=== PATIENT | male | born 1980 | race Hispanic/Latino ===

== ENCOUNTER 2020-12-05 20:12 | Inpatient (IN) | payer OTHER ==
[~2020-12-05] VITALS: Ht 170.2 cm; Wt 97.9 kg
[2020-12-05 21:09] LABS: BASOPHILS % (AUTO) 0.4 % (0.0-5.0); EOSINOPHILS % (AUTO) 0.7 % (0.0-8.0); HEMATOCRIT 33.3 % (42-54); LYMPHOCYTES % (AUTO) 18.7 % (21.0-51.0); MEAN CORPUSCULAR HEMOGLOBIN 38.1 pg (27.0-33.0); MEAN CORPUSCULAR HGB CONC 34.2 g/dL (32.0-36.0); MEAN CORPUSCULAR VOLUME 111.4 fL (79-99); NEUTROPHILS % (AUTO) 66.8 % (40.0-77.0); PLATELET COUNT (AUTO) 85 K/uL (130-400); RED BLOOD CELL COUNT(AUTO) 2.99 MIL/uL (4.50-6.20); RED CELL DISTRIBUTION WIDTH 13.6 % (11.0-15.5); WHITE BLOOD COUNT (AUTO) 7.4 K/uL (4.8-10.8)
[2020-12-05] MEDS ORDERED: FUROSEMIDE 20MG VIAL ONE (21:20)
[2020-12-05] MEDS ORDERED: FUROSEMIDE 40MG VIAL ONE (21:21)
[2020-12-05 21:23] LABS: CREATININE 1.1 mg/dL (0.5-1.5); POTASSIUM 4.1 mmol/L (3.5-5.1)
[2020-12-05 21:26] LABS: INR 1.85 (0.85-1.15); PARTIAL THROMBOPLASTIN TIME 33.1 SEC (26.3-35.5); PROTHROMBIN TIME 18.5 SEC (9.6-11.6)
[2020-12-05 21:27] LABS: ALBUMIN 1.9 g/dL (3.5-5.0); BILIRUBIN,TOTAL 15.6 mg/dL (0.2-1.0); TOTAL PROTEIN, SERUM 6.3 g/dL (6.0-8.3)
[2020-12-06] MEDS ORDERED: ONDANSETRON 4MG INJ IV PRN
[2020-12-06] MEDS ORDERED: ALBUMIN (HUMAN) 25% 50 ML IV ONE
[2020-12-06] MEDS ORDERED: ACETAMINOPHEN 325 MG TAB PO PRN ×2
[2020-12-06 00:37] LABS: APPEARANCE,URINE Cloudy (CLEAR); BILIRUBIN,URINE Large (NEGATIVE); GLUCOSE, URINE (UA) Negative (NEGATIVE); KETONES,URINE Negative (NEGATIVE); LEUKOCYTE ESTERASE ,URINE Moderate (NEGATIVE); NITRATE,URINE Positive (NEGATIVE); OCCULT BLOOD,URINE Trace (NEGATIVE); PROTEIN,URINE POS 1+ mg/dL (NEGATIVE)
[2020-12-06 00:42] LABS: COLOR,URINE Orange (YELLOW)
[2020-12-06 00:44] LABS: AMORPHOUS SEDIMENT,UR Rare /LPF (None Seen); BACTERIA,URINE Rare /HPF (None Seen); MUCUS,URINE Rare LPF (None Seen); RBC,URINE None Seen /HPF (0-1); SQUAMOUS EPITHELIAL CELL,UR Rare /HPF (0-2); WBC,URINE 0-1 /HPF (0-1)
[2020-12-06] MEDS ORDERED: CEFTRIAXONE 1G VIAL ONE ×2 (01:52→09:36)
[2020-12-06 03:53] LABS: BASOPHILS % (AUTO) 0.1 % (0.0-5.0); EOSINOPHILS % (AUTO) 0.5 % (0.0-8.0); HEMATOCRIT 31.2 % (42-54); LYMPHOCYTES % (AUTO) 15.8 % (21.0-51.0); MEAN CORPUSCULAR HEMOGLOBIN 37.8 pg (27.0-33.0); MEAN CORPUSCULAR HGB CONC 34.3 g/dL (32.0-36.0); MEAN CORPUSCULAR VOLUME 110.2 fL (79-99); MONOCYTES % (AUTO) 15.8 % (3.0-13.0); NEUTROPHILS % (AUTO) 67.3 % (40.0-77.0); PLATELET COUNT (AUTO) 80 K/uL (130-400); RED BLOOD CELL COUNT(AUTO) 2.83 MIL/uL (4.50-6.20); RED CELL DISTRIBUTION WIDTH 13.6 % (11.0-15.5)
[2020-12-06 04:18] LABS: ALBUMIN 1.7 g/dL (3.5-5.0); POTASSIUM 4.5 mmol/L (3.5-5.1)
[2020-12-06] MEDS: FAMOTIDINE 20MG VIAL IV SCH ×2 (09:00→20:57)
[2020-12-06] MEDS: FUROSEMIDE 20MG VIAL IV SCH ×2 (09:00→20:58)
[2020-12-06] MEDS ORDERED: FUROSEMIDE 20MG VIAL ONE (09:35)
[2020-12-06] MEDS ORDERED: FAMOTIDINE 20MG VIAL IV ONE (09:36)
[2020-12-06] MEDS: CEFTRIAXONE 1G VIAL IVP SCH (13:00)
[2020-12-06 14:36] LABS: AMPHET/METH SCREEN,URINE NEGATIVE (NEGATIVE); CANNABINOID SCREEN,URINE NEGATIVE (NEGATIVE); COCAINE SCREEN,URINE NEGATIVE (NEGATIVE); OPIATE SCREEN,URINE NEGATIVE (NEGATIVE); PHENCYCLIDINE SCREEN,URINE NEGATIVE (NEGATIVE)
[2020-12-06 15:03] LABS: BARBITURATE SCREEN, URINE NEGATIVE (NEGATIVE); BENZODIAZEPINES SCREEN,URINE NEGATIVE (NEGATIVE)
[2020-12-06 17:40] VITALS: BP 112/67
[2020-12-06 20:31] VITALS: BP 127/80
[2020-12-06 23:19] VITALS: BP 125/72
[2020-12-07] MEDS: CEFTRIAXONE 1G VIAL IVP SCH ×3 (01:24→23:44)
[2020-12-07 03:59] VITALS: BP 137/84
[2020-12-07 06:24] LABS: BASOPHILS % (AUTO) 0.5 % (0.0-5.0); EOSINOPHILS % (AUTO) 2.1 % (0.0-8.0); HEMATOCRIT 27.9 % (42-54); MEAN CORPUSCULAR HGB CONC 35.1 g/dL (32.0-36.0); MEAN CORPUSCULAR VOLUME 108.1 fL (79-99); MONOCYTES % (AUTO) 16.4 % (3.0-13.0); NEUTROPHILS % (AUTO) 62.3 % (40.0-77.0); PLATELET COUNT (AUTO) 60 K/uL (130-400); RED BLOOD CELL COUNT(AUTO) 2.58 MIL/uL (4.50-6.20); RED CELL DISTRIBUTION WIDTH 13.3 % (11.0-15.5); WHITE BLOOD COUNT (AUTO) 5.8 K/uL (4.8-10.8)
[2020-12-07 06:39] LABS: CREATININE 0.9 mg/dL (0.5-1.5)
[2020-12-07] MEDS: FAMOTIDINE 20MG VIAL IV SCH ×2 (08:54→19:19)
[2020-12-07] MEDS: FUROSEMIDE 20MG VIAL IV SCH (08:54)
[2020-12-07 09:40] VITALS: BP 131/73
[2020-12-07] MEDS: SPIRONOLACTONE 25 MG TAB PO SCH (12:05)
[2020-12-07] MEDS ORDERED: PHARMACY COMMUNICATION MISC PRN (14:00)
[2020-12-07] MEDS ORDERED: CHLORDIAZEPOXIDE HCL 25 MG CAP PO PRN ×2 (14:00)
[2020-12-07] MEDS ORDERED: LORAZEPAM 2 MG/ML 1 ML VIAL IVP PRN ×2 (14:00)
[2020-12-07] MEDS ORDERED: IOHEXOL 350 MG/ML 100ML INFUS..BTL IV ONE (15:13)
[2020-12-07] MEDS: FUROSEMIDE 40MG VIAL IV SCH ×2 (16:40→23:44)
[2020-12-07 20:20] VITALS: BP 118/71
[2020-12-08] VITALS (13 sets, daily range): BP systolic 88–136; BP diastolic 53–75
[2020-12-08 05:43] LABS: ALBUMIN 1.6 g/dL (3.5-5.0); BILIRUBIN,TOTAL 10.9 mg/dL (0.2-1.0); CREATININE 0.9 mg/dL (0.5-1.5); PHOSPHORUS 3.2 mg/dL (2.5-4.9); POTASSIUM 3.9 mmol/L (3.5-5.1); TOTAL PROTEIN, SERUM 5.5 g/dL (6.0-8.3)
[2020-12-08] MEDS: FUROSEMIDE 40MG VIAL IV SCH (05:54)
[2020-12-08 08:48] LABS: INR 1.96 (0.85-1.15); PARTIAL THROMBOPLASTIN TIME 36.1 SEC (26.3-35.5); PROTHROMBIN TIME 19.5 SEC (9.6-11.6)
[2020-12-08] MEDS: MULTIVITAMIN TABLET PO SCH (08:54)
[2020-12-08] MEDS: SPIRONOLACTONE 25 MG TAB PO SCH (08:54)
[2020-12-08] MEDS: FAMOTIDINE 20MG VIAL IV SCH ×2 (08:54→21:37)
[2020-12-08] MEDS: FOLIC ACID 1 MG TABLET PO SCH (08:54)
[2020-12-08] MEDS ORDERED: THIAMINE HCL 100 MG/ML 2ML VIAL IM SCH (09:00)
[2020-12-08 13:28] LABS: APPEARANCE BODY FLUID CLEAR (CLEAR); BODY FLUID RBC 11 /cu. mm.; BODY FLUID WBC 58 /cu. mm.; COLOR,BODY FLUID YELLOW (LT YELLOW); SPECIMENTYPE,BODY FLUID ASCITES; TOTAL VOLUME,BODY FLUID 9700 mL
[2020-12-08 14:17] LABS: BF LYMPHOCYTE 18 %; BF MESOTHELIAL 60 %; BF MONOCYTE 9 %
[2020-12-08] MEDS: CEFTRIAXONE 1G VIAL IVP SCH (15:34)
[2020-12-08] MEDS: ALBUMIN (HUMAN) 25% 200 ML IV SCH ×2 (15:34→15:35)
[2020-12-08 17:42] LABS: CREATININE 1.1 mg/dL (0.5-1.5); MAGNESIUM 1.8 mg/dL (1.80-2.40); POTASSIUM 3.9 mmol/L (3.5-5.1)
[2020-12-08] MEDS ORDERED: MAGNESIUM 2GM PREMIX 50ML 50 ML IV SCH (18:30)
[2020-12-09] MEDS: CEFTRIAXONE 1G VIAL IVP SCH ×3 (00:09→20:17)
[2020-12-09 03:53] VITALS: BP 111/58
[2020-12-09 04:48] LABS: BASOPHILS % (AUTO) 0.5 % (0.0-5.0); HEMATOCRIT 22.6 % (42-54); LYMPHOCYTES % (AUTO) 23.5 % (21.0-51.0); MEAN CORPUSCULAR HEMOGLOBIN 37.8 pg (27.0-33.0); MEAN CORPUSCULAR VOLUME 108.1 fL (79-99); MONOCYTES % (AUTO) 19.6 % (3.0-13.0); NEUTROPHILS % (AUTO) 53.9 % (40.0-77.0); PLATELET COUNT (AUTO) 39 K/uL (130-400); RED BLOOD CELL COUNT(AUTO) 2.09 MIL/uL (4.50-6.20); RED CELL DISTRIBUTION WIDTH 13.3 % (11.0-15.5); WHITE BLOOD COUNT (AUTO) 4.1 K/uL (4.8-10.8)
[2020-12-09 05:11] LABS: POTASSIUM 3.6 mmol/L (3.5-5.1); THYROID STIMULATING HORMONE 7.9 uIU/mL (0.36-3.74); URIC ACID 4.1 mg/dL (2.6-7.2)
[2020-12-09 08:00] VITALS: BP 102/58
[2020-12-09] MEDS: THIAMINE HCL 100 MG/ML 2ML VIAL IV SCH (08:39)
[2020-12-09] MEDS: FOLIC ACID 1 MG TABLET PO SCH (08:40)
[2020-12-09] MEDS: SPIRONOLACTONE 25 MG TAB PO SCH (08:40)
[2020-12-09] MEDS: Vitamin B Complex/Vit C/Folic Acid PO SCH (08:40)
[2020-12-09] MEDS: FAMOTIDINE 20MG TAB PO SCH ×2 (08:40→20:17)
[2020-12-09] MEDS: MULTIVITAMIN TABLET PO SCH (08:40)
[2020-12-09 12:00] VITALS: BP 108/68
[2020-12-09 16:00] VITALS: BP 106/69
[2020-12-09 19:06] VITALS: BP 110/68
[2020-12-09 20:55] LABS: HEMATOCRIT 23.7 % (42-54)
[2020-12-10 03:52] VITALS: BP 106/69
[2020-12-10 04:41] LABS: HEMATOCRIT 24.8 % (42-54); MEAN CORPUSCULAR HEMOGLOBIN 37.4 pg (27.0-33.0); MEAN CORPUSCULAR HGB CONC 34.3 g/dL (32.0-36.0); MEAN CORPUSCULAR VOLUME 109.3 fL (79-99); RED BLOOD CELL COUNT(AUTO) 2.27 MIL/uL (4.50-6.20); WHITE BLOOD COUNT (AUTO) 5.5 K/uL (4.8-10.8)
[2020-12-10 04:56] LABS: % IRON SATURATION 43.1 % (30-44)
[2020-12-10 05:09] LABS: CREATININE 0.9 mg/dL (0.5-1.5); POTASSIUM 3.8 mmol/L (3.5-5.1); T4 (THYROXINE) 3.8 ug/dL (4.7-13.3)
[2020-12-10 08:00] VITALS: BP 116/75
[2020-12-10] MEDS: MULTIVITAMIN TABLET PO SCH (10:40)
[2020-12-10] MEDS: FOLIC ACID 1 MG TABLET PO SCH (10:40)
[2020-12-10] MEDS: SPIRONOLACTONE 25 MG TAB PO SCH (10:40)
[2020-12-10] MEDS: Vitamin B Complex/Vit C/Folic Acid PO SCH (10:40)
[2020-12-10] MEDS: CEFTRIAXONE 1G VIAL IVP SCH ×2 (10:41→20:28)
[2020-12-10] MEDS: THIAMINE HCL 100 MG/ML 2ML VIAL IV SCH (10:41)
[2020-12-10] MEDS: FAMOTIDINE 20MG TAB PO SCH ×2 (10:41→20:28)
[2020-12-10 11:13] VITALS: BP 120/68
[2020-12-10] MEDS ORDERED: CEPH500B PO (12:48)
[2020-12-10 13:59] LABS: HEMATOCRIT 24.6 % (42-54)
[2020-12-10] MEDS ORDERED: SPIR25TA PO (15:50)
[2020-12-10] MEDS ORDERED: FURO20TA6 PO (15:50)
[2020-12-10 16:01] VITALS: BP 117/66
[2020-12-10 20:19] VITALS: BP 123/72
[2020-12-11 00:08] VITALS: BP 120/61
[2020-12-11 04:23] VITALS: BP 116/65
[2020-12-11 07:55] VITALS: BP 121/64
[2020-12-11 09:11] LABS: HEMATOCRIT 25.3 % (42-54)
[2020-12-11] MEDS: CEFTRIAXONE 1G VIAL IVP SCH (10:08)
[2020-12-11] MEDS: Vitamin B Complex/Vit C/Folic Acid PO SCH (10:09)
[2020-12-11] MEDS: FAMOTIDINE 20MG TAB PO SCH (10:09)
[2020-12-11] MEDS: SPIRONOLACTONE 25 MG TAB PO SCH (10:09)
[2020-12-11] MEDS: MULTIVITAMIN TABLET PO SCH (10:09)
[2020-12-11 11:28] VITALS: BP 112/63
[2020-12-11 13:38] LABS: HEMATOCRIT 25.3 % (42-54)
[2020-12-11 15:46] VITALS: BP 106/70
[2020-12-25] MEDS ORDERED: CYAN250014 PO (14:48)
[2020-12-25] MEDS ORDERED: Midodrine Hcl PO (14:48)
[2020-12-25] MEDS ORDERED: FOLI1 PO (14:48)
[2020-12-25] MEDS ORDERED: LEVO250T43 PO ×2 (15:02→15:21)
[2020-12-25] MEDS ORDERED: FOLI0.8C PO ×2 (15:02→15:21)
[2020-12-25] MEDS ORDERED: CYAN250010 PO ×2 (15:02→15:21)
[2020-12-25] MEDS ORDERED: MIDO10TA PO ×2 (15:02→15:21)
[2021-04-13] MEDS ORDERED: CYCL10TA16 PO (21:02)
== END 2020-12-11 16:50 | disposition home or self-care (01) | DRG 433 ==
LOC: EDH 20:12 → EDHIP 20:13 → 4AH 12-06 15:41 → 4CH 12-08 22:24
PROVIDERS: ADMIT Internal Medicine; ATTEND Internal Medicine
PROC: 0W9G3ZZ Drainage of Peritoneal Cavity, Percutaneous Approach (ICD-10-PCS; principal; 2020-12-08)
DX: K70.31 Alcoholic cirrhosis of liver with ascites (principal); N39.0 Urinary tract infection, site not specified; E87.1 Hypo-osmolality and hyponatremia; D68.9 Coagulation defect, unspecified; K76.6 Portal hypertension; I10 Essential (primary) hypertension; E87.70 Fluid overload, unspecified; E66.9 Obesity, unspecified; Z68.35 Body mass index [BMI] 35.0-35.9, adult; D69.6 Thrombocytopenia, unspecified; Z20.822 Contact with and (suspected) exposure to COVID-19; F10.10 Alcohol abuse, uncomplicated; E88.09 Other disorders of plasma-protein metabolism, not elsewhere classified; D64.9 Anemia, unspecified; K80.20 Calculus of gallbladder without cholecystitis without obstruction; N28.9 Disorder of kidney and ureter, unspecified; E03.9 Hypothyroidism, unspecified; Z91.19 Patient's noncompliance with other medical treatment and regimen
CPT/HCPCS: 36415; 49083; 71045; 74160; 74181; 76705; 80048; 80053; 80305; 81001; 82140; 82150; 82248; 82550; 82728; 82948; 83540; 83550; 83605; 83690; 83735; 83880; 83935; 84100; 84145; 84300; 84436; 84443; 84481; 84484; 84550; 85014; 85018; 85025; 85027; 85610; 85730; 87071; 87076; 87088; 87205; 87426; 89051; 93005; C1729; G0378; J0696; J1940; J3411; J3490; P9046; Q9967; U0003

== ENCOUNTER 2021-01-01 07:48 | Emergency (ER) | payer OTHER ==
[~2021-01-01 07:48] MED LIST: CYAN250010 PO; FOLI0.8C PO; LEVO250T59 PO; MIDO10TA PO
[2021-01-01 08:23] LABS: BASOPHILS % (AUTO) 0.8 % (0.0-5.0); EOSINOPHILS % (AUTO) 1.1 % (0.0-8.0); HEMATOCRIT 25.1 % (42-54); LYMPHOCYTES % (AUTO) 20.6 % (21.0-51.0); MEAN CORPUSCULAR HEMOGLOBIN 37.4 pg (27.0-33.0); MEAN CORPUSCULAR HGB CONC 31.9 g/dL (32.0-36.0); MEAN CORPUSCULAR VOLUME 117.3 fL (79-99); MONOCYTES % (AUTO) 13.6 % (3.0-13.0); NEUTROPHILS % (AUTO) 63.1 % (40.0-77.0); PLATELET COUNT (AUTO) 101 K/uL (130-400); RED BLOOD CELL COUNT(AUTO) 2.14 MIL/uL (4.50-6.20); RED CELL DISTRIBUTION WIDTH 14.4 % (11.0-15.5); WHITE BLOOD COUNT (AUTO) 7.4 K/uL (4.8-10.8)
[2021-01-01 08:35] LABS: ALBUMIN 2.7 g/dL (3.5-5.0); POTASSIUM 4.5 mmol/L (3.5-5.1)
[2021-01-01] MEDS ORDERED: ALBUMIN (HUMAN) 25% 200 ML IV ONE (08:37)
[2021-01-01 08:47] LABS: BILIRUBIN,TOTAL 10.6 mg/dL (0.2-1.0); TOTAL PROTEIN, SERUM 5.6 g/dL (6.0-8.3)
[2021-01-01 09:08] LABS: INR 2.08 (0.85-1.15); PARTIAL THROMBOPLASTIN TIME 36.2 SEC (26.3-35.5); PROTHROMBIN TIME 20.6 SEC (9.6-11.6)
[2021-01-01 09:21] LABS: CREATININE 1.2 mg/dL (0.5-1.5)
[2021-01-01 13:11] LABS: APPEARANCE BODY FLUID CLEAR (CLEAR); BODY FLUID WBC 88 /cu. mm.; COLOR,BODY FLUID YELLOW (LT YELLOW); SPECIMENTYPE,BODY FLUID ASCITES; TOTAL VOLUME,BODY FLUID 12000 mL
[2021-01-01 13:14] LABS: BODY FLUID RBC 170 /cu. mm.
[2021-01-01 13:25] LABS: BF LYMPHOCYTE 25 %; BF MESOTHELIAL 57 %; BF MONOCYTE 18 %
== END 2021-01-01 11:45 | disposition home or self-care (01) ==
LOC: EDH 07:48
DX: K70.31 Alcoholic cirrhosis of liver with ascites (principal)
CPT/HCPCS: 36415; 49083; 71045; 80053; 85025; 85610; 85730; 87071; 87205; 89051; 93005; 96365; 99285; A4215; P9046

== ENCOUNTER 2021-01-08 07:24 | Emergency (ER) | payer OTHER ==
[2021-01-08 07:41] LABS: BASOPHILS % (AUTO) 0.5 % (0.0-5.0); EOSINOPHILS % (AUTO) 1.4 % (0.0-8.0); HEMATOCRIT 28.6 % (42-54); LYMPHOCYTES % (AUTO) 18.4 % (21.0-51.0); MEAN CORPUSCULAR HEMOGLOBIN 36.6 pg (27.0-33.0); MEAN CORPUSCULAR HGB CONC 32.9 g/dL (32.0-36.0); MEAN CORPUSCULAR VOLUME 111.3 fL (79-99); MONOCYTES % (AUTO) 14.4 % (3.0-13.0); NEUTROPHILS % (AUTO) 64.8 % (40.0-77.0); PLATELET COUNT (AUTO) 86 K/uL (130-400); RED BLOOD CELL COUNT(AUTO) 2.57 MIL/uL (4.50-6.20); RED CELL DISTRIBUTION WIDTH 14.2 % (11.0-15.5); WHITE BLOOD COUNT (AUTO) 6.3 K/uL (4.8-10.8)
[2021-01-08 07:53] LABS: INR 2.02 (0.85-1.15); PROTHROMBIN TIME 20.7 SEC (9.6-11.6)
[2021-01-08 07:54] LABS: PARTIAL THROMBOPLASTIN TIME 40.7 SEC (26.3-35.5)
[2021-01-08 08:29] LABS: ALBUMIN 2.9 g/dL (3.5-5.0); BILIRUBIN,TOTAL 15.3 mg/dL (0.2-1.0); CREATININE 1.2 mg/dL (0.5-1.5); POTASSIUM 3.9 mmol/L (3.5-5.1); TOTAL PROTEIN, SERUM 5.8 g/dL (6.0-8.3)
[2021-01-08] MEDS ORDERED: ALBUMIN (HUMAN) 25% 200 ML IV ONE (09:34)
[2021-01-08] MEDS ORDERED: MIDODRINE HCL 5 MG TABLET ONE (12:52)
== END 2021-01-08 13:52 | disposition home or self-care (01) ==
LOC: EDH 07:24
DX: R18.8 Other ascites (principal); R14.0 Abdominal distension (gaseous); Z87.891 Personal history of nicotine dependence
CPT/HCPCS: 36415; 49083; 80053; 85025; 85610; 85730; 96365; 99284; A4215; P9046

== ENCOUNTER 2021-01-14 07:38 | Emergency (ER) | payer OTHER ==
[2021-01-14 08:25] LABS: BASOPHILS % (AUTO) 0.4 % (0.0-5.0); EOSINOPHILS % (AUTO) 1.6 % (0.0-8.0); HEMATOCRIT 26.5 % (42-54); LYMPHOCYTES % (AUTO) 14.7 % (21.0-51.0); MEAN CORPUSCULAR VOLUME 109.1 fL (79-99); MONOCYTES % (AUTO) 12.8 % (3.0-13.0); NEUTROPHILS % (AUTO) 69.9 % (40.0-77.0); PLATELET COUNT (AUTO) 80 K/uL (130-400); RED BLOOD CELL COUNT(AUTO) 2.43 MIL/uL (4.50-6.20); RED CELL DISTRIBUTION WIDTH 13.3 % (11.0-15.5); WHITE BLOOD COUNT (AUTO) 6.9 K/uL (4.8-10.8)
[2021-01-14 08:37] LABS: INR 1.97 (0.85-1.15); PROTHROMBIN TIME 20.2 SEC (9.6-11.6)
[2021-01-14 08:39] LABS: PARTIAL THROMBOPLASTIN TIME 41.1 SEC (26.3-35.5)
[2021-01-14 08:50] LABS: ALANINE AMINOTRANSFERASE 42 U/L (12-78); ASPARTATE AMINOTRANSFERASE 51 U/L (10-37); BILIRUBIN,TOTAL 13.6 mg/dL (0.2-1.0); CARBON DIOXIDE 23 mmol/L (21-32); CHLORIDE 99 mmol/L (101-111); CREATINE KINASE, TOTAL 90 U/L (21-232); CREATININE 1.2 mg/dL (0.5-1.5); GLOMERULAR FILTR. RATE CALC 71 mL/min (>60); GLUCOSE,RANDOM 137 mg/dL (70-105); MYOGLOBIN 58 ng/mL (10-92); POTASSIUM 3.7 mmol/L (3.5-5.1); SODIUM SERUM 132 mmol/L (136-145); TOTAL PROTEIN, SERUM 5.9 g/dL (6.0-8.3); TROPONIN I < 0.04 ng/mL (0.00-0.06); UREA NITROGEN, BLOOD 29 mg/dL (7-18)
[2021-01-14] MEDS ORDERED: ALBUMIN (HUMAN) 25% 200 ML IV ONE (09:05)
[2021-01-14 12:35] LABS: APPEARANCE BODY FLUID CLEAR (CLEAR); BODY FLUID WBC 57 /cu. mm.; COLOR,BODY FLUID YELLOW (LT YELLOW); SPECIMENTYPE,BODY FLUID ASCITES; TOTAL VOLUME,BODY FLUID 12000 mL
[2021-01-14 12:36] LABS: BODY FLUID RBC 78 /cu. mm.
[2021-01-14 12:46] LABS: BF LYMPHOCYTE 22 %; BF MESOTHELIAL 63 %; BF MONOCYTE 11 %
== END 2021-01-14 13:17 | disposition home or self-care (01) ==
LOC: EDH 07:38
DX: K70.31 Alcoholic cirrhosis of liver with ascites (principal)
CPT/HCPCS: 36415; 49083; 71045; 80053; 82550; 83605; 83874; 84145; 84484; 85025; 85610; 85730; 86900; 86901; 87040 ×2; 87071; 87205; 89051; 93005; 96365; 99285; A4215; P9046

== ENCOUNTER 2021-01-20 07:27 | Inpatient (IN) | payer OTHER ==
[~2021-01-20] VITALS: Ht 167.6 cm; Wt 77.4 kg
[2021-01-20] MEDS ORDERED: DiphenhydrAMINE HCL 50 MG/ML VIAL ONE (07:58)
[2021-01-20] MEDS ORDERED: ONDANSETRON HCL 4 MG/2 ML VIAL ONE (07:58)
[2021-01-20 07:59] LABS: BASOPHILS % (AUTO) 0.2 % (0.0-5.0); EOSINOPHILS % (AUTO) 0.5 % (0.0-8.0); HEMATOCRIT 23.7 % (42-54); LYMPHOCYTES % (AUTO) 9.9 % (21.0-51.0); MEAN CORPUSCULAR HGB CONC 34.6 g/dL (32.0-36.0); MEAN CORPUSCULAR VOLUME 103.9 fL (79-99); NEUTROPHILS % (AUTO) 69.3 % (40.0-77.0); PLATELET COUNT (AUTO) 68 K/uL (130-400); RED BLOOD CELL COUNT(AUTO) 2.28 MIL/uL (4.50-6.20); RED CELL DISTRIBUTION WIDTH 13.2 % (11.0-15.5); WHITE BLOOD COUNT (AUTO) 9.3 K/uL (4.8-10.8)
[2021-01-20] MEDS ORDERED: FAMOTIDINE/PF 20 MG/2 ML VIAL IV ONE (07:59)
[2021-01-20] MEDS ORDERED: PROCHLORPERAZINE EDISYLATE 10 MG/2 ML VIAL ONE (07:59)
[2021-01-20 08:11] LABS: INR 1.93 (0.85-1.15); PROTHROMBIN TIME 19.8 SEC (9.6-11.6)
[2021-01-20 08:26] LABS: ALBUMIN 2.6 g/dL (3.5-5.0); BILIRUBIN,TOTAL 12.5 mg/dL (0.2-1.0); CREATININE 2.2 mg/dL (0.5-1.5); POTASSIUM 4.2 mmol/L (3.5-5.1); TOTAL PROTEIN, SERUM 5.6 g/dL (6.0-8.3)
[2021-01-20] MEDS ORDERED: LACTULOSE 20 GM/30 ML UDCUP ONE ×2 (10:18→19:43)
[2021-01-20] MEDS ORDERED: ALBUMIN (HUMAN) 25% 100 ML IV ONE ×2 (12:33→19:43)
[2021-01-20] MEDS ORDERED: Vitamin B Complex/Vit C/Folic Acid ONE (12:33)
[2021-01-20] MEDS ORDERED: CEFTRIAXONE SODIUM 1 GM ONE (12:33)
[2021-01-20] MEDS ORDERED: MIDODRINE HCL 5 MG TABLET ONE ×2 (12:34→19:43)
[2021-01-20] MEDS ORDERED: PHYTONADIONE 10 MG/1 ML AMP ONE (12:34)
[2021-01-20] MEDS ORDERED: Vitamin B Complex/Vit C/Folic Acid PO SCH (12:45)
[2021-01-20] MEDS ORDERED: PHYTONADIONE 10 MG/1 ML AMP SQ SCH (12:45)
[2021-01-20 12:48] LABS: APPEARANCE,URINE Clear (CLEAR); BILIRUBIN,URINE Small (NEGATIVE); COLOR,URINE Dark Yellow (YELLOW); GLUCOSE, URINE (UA) Negative (NEGATIVE); KETONES,URINE Negative (NEGATIVE); LEUKOCYTE ESTERASE ,URINE Trace (NEGATIVE); NITRATE,URINE Negative (NEGATIVE); OCCULT BLOOD,URINE Negative (NEGATIVE); PH,URINE 5.5 (5.0-8.0); PROTEIN,URINE Negative (NEGATIVE)
[2021-01-20 12:52] LABS: CREATININE,URINE RANDOM 133 mg/dL (30-135); SODIUM,URINE RANDOM < 13 mmol/l (40-220)
[2021-01-20 12:57] LABS: AMPHET/METH SCREEN,URINE NEGATIVE (NEGATIVE); BARBITURATE SCREEN, URINE NEGATIVE (NEGATIVE); BENZODIAZEPINES SCREEN,URINE NEGATIVE (NEGATIVE); CANNABINOID SCREEN,URINE NEGATIVE (NEGATIVE); COCAINE SCREEN,URINE NEGATIVE (NEGATIVE); OPIATE SCREEN,URINE NEGATIVE (NEGATIVE); PHENCYCLIDINE SCREEN,URINE NEGATIVE (NEGATIVE)
[2021-01-20 12:58] LABS: BACTERIA,URINE None Seen /HPF (None Seen); RBC,URINE 0-1 /HPF (0-1); WBC,URINE 0-1 /HPF (0-1)
[2021-01-20 13:03] LABS: MAGNESIUM 3.1 mg/dL (1.80-2.40); PHOSPHORUS 3.7 mg/dL (2.5-4.9); THYROID STIMULATING HORMONE 3.49 uIU/mL (0.36-3.74); URIC ACID 8.9 mg/dL (2.6-7.2)
[2021-01-20 15:43] LABS: % IRON SATURATION 106.2 % (30-44)
[2021-01-20] MEDS ORDERED: ONDANSETRON HCL 4 MG/2 ML VIAL IV PRN (16:15)
[2021-01-20] MEDS ORDERED: ACETAMINOPHEN 325 MG TAB PO PRN ×2 (16:15)
[2021-01-20] MEDS ORDERED: PANTOPRAZOLE SODIUM 40 MG TABLET.DR PO SCH (16:15)
[2021-01-20] MEDS ORDERED: PANTOPRAZOLE SODIUM 40 MG TABLET.DR ONE (16:54)
[2021-01-21] MEDS ORDERED: MIDAZOLAM HCL 1 MG/ML 2ML VIAL ONE ×2 (01:20→01:21)
[2021-01-21] MEDS ORDERED: SODIUM CHLORIDE 0.9% 1000ML 1,000 ML IV ONE (01:29)
[2021-01-21] MEDS ORDERED: LACTULOSE 20 GM/30 ML UDCUP ONE ×2 (05:28→20:42)
[2021-01-21] MEDS ORDERED: ALBUMIN (HUMAN) 25% 100 ML IV ONE ×3 (05:28→23:00)
[2021-01-21 06:24] LABS: BASOPHILS % (AUTO) 0.2 % (0.0-5.0); EOSINOPHILS % (AUTO) 1.4 % (0.0-8.0); LYMPHOCYTES % (AUTO) 13.5 % (21.0-51.0); MEAN CORPUSCULAR HEMOGLOBIN 37.7 pg (27.0-33.0); MEAN CORPUSCULAR HGB CONC 35.3 g/dL (32.0-36.0); MEAN CORPUSCULAR VOLUME 106.9 fL (79-99); MONOCYTES % (AUTO) 18.4 % (3.0-13.0); NEUTROPHILS % (AUTO) 65.3 % (40.0-77.0); PLATELET COUNT (AUTO) 47 K/uL (130-400); RED BLOOD CELL COUNT(AUTO) 1.75 MIL/uL (4.50-6.20); RED CELL DISTRIBUTION WIDTH 13.4 % (11.0-15.5); WHITE BLOOD COUNT (AUTO) 5.1 K/uL (4.8-10.8)
[2021-01-21 06:31] LABS: HEMATOCRIT 18.7 % (42-54)
[2021-01-21 06:37] LABS: INR 2.01 (0.85-1.15); PROTHROMBIN TIME 20.6 SEC (9.6-11.6)
[2021-01-21 06:38] LABS: PARTIAL THROMBOPLASTIN TIME 54.1 SEC (26.3-35.5)
[2021-01-21 06:41] LABS: ALBUMIN 3.2 g/dL (3.5-5.0); BILIRUBIN,TOTAL 8.4 mg/dL (0.2-1.0); CREATININE 2.1 mg/dL (0.5-1.5); MAGNESIUM 3.3 mg/dL (1.80-2.40); PHOSPHORUS 3.3 mg/dL (2.5-4.9); TOTAL PROTEIN, SERUM 5.4 g/dL (6.0-8.3)
[2021-01-21] MEDS ORDERED: Vitamin B Complex/Vit C/Folic Acid ONE (08:19)
[2021-01-21] MEDS ORDERED: PANTOPRAZOLE 40 MG/VIAL ONE (08:19)
[2021-01-21] MEDS: PANTOPRAZOLE SODIUM 40 MG TABLET.DR PO SCH (09:00)
[2021-01-21] MEDS: Vitamin B Complex/Vit C/Folic Acid PO SCH (09:00)
[2021-01-21] MEDS ORDERED: ONDANSETRON HCL 4 MG/2 ML VIAL ONE (09:26)
[2021-01-21] MEDS: CEFTRIAXONE SODIUM 1 GM IVP SCH (11:15)
[2021-01-21] MEDS ORDERED: CEFTRIAXONE SODIUM 1 GM ONE (13:04)
[2021-01-21] MEDS: ALBUMIN (HUMAN) 25% 100 ML IV SCH (20:00)
[2021-01-21] MEDS: MIDODRINE HCL 5 MG TABLET PO SCH (21:00)
[2021-01-21] MEDS: RIFAXIMIN 550 MG TABLET PO SCH (21:00)
[2021-01-22] MEDS ORDERED: MIDODRINE HCL 5 MG TABLET ONE (00:58)
[2021-01-22 03:10] VITALS: BP 136/73
[2021-01-22] MEDS: LACTULOSE 20 GM/30 ML UDCUP PO SCH ×4 (04:13→20:36)
[2021-01-22 05:11] LABS: HEMATOCRIT 22.6 % (42-54); MEAN CORPUSCULAR HEMOGLOBIN 34.7 pg (27.0-33.0); MEAN CORPUSCULAR HGB CONC 34.1 g/dL (32.0-36.0); MEAN CORPUSCULAR VOLUME 101.8 fL (79-99); PLATELET COUNT (AUTO) 51 K/uL (130-400); RED BLOOD CELL COUNT(AUTO) 2.22 MIL/uL (4.50-6.20); RED CELL DISTRIBUTION WIDTH 17.3 % (11.0-15.5); WHITE BLOOD COUNT (AUTO) 6.3 K/uL (4.8-10.8)
[2021-01-22 05:26] LABS: ALBUMIN 3.4 g/dL (3.5-5.0); CREATININE 2.1 mg/dL (0.5-1.5); MAGNESIUM 3.4 mg/dL (1.80-2.40); TOTAL PROTEIN, SERUM 5.5 g/dL (6.0-8.3)
[2021-01-22 05:40] LABS: BASOPHILS % (MANUAL) 1 % (0-2); EOSINOPHILS % (MANUAL) 4 % (1-6); LYMPHOCYTES % (MANUAL) 11 % (22-44); MAN.DIFF COMMENT-IMPRESSION MANUAL DIFFERENTIAL; MONOCYTES % (MANUAL) 14 % (2-9); SEGMENTED NEUTROPHILS % 70 % (40-70)
[2021-01-22 05:41] LABS: PLATELET MORPHOLOGY COMMENT DECREASED
[2021-01-22 08:00] VITALS: BP 121/67
[2021-01-22] MEDS ORDERED: OCTREOTIDE ACETATE 100 MCG/ML AMP IV SCH (09:00)
[2021-01-22] MEDS: Vitamin B Complex/Vit C/Folic Acid PO SCH (10:06)
[2021-01-22] MEDS: RIFAXIMIN 550 MG TABLET PO SCH ×2 (10:07→20:36)
[2021-01-22] MEDS: MIDODRINE HCL 5 MG TABLET PO SCH ×3 (10:07→20:36)
[2021-01-22] MEDS: PANTOPRAZOLE SODIUM 40 MG TABLET.DR PO SCH (10:07)
[2021-01-22] MEDS: ALBUMIN (HUMAN) 25% 100 ML IV SCH (10:08)
[2021-01-22] MEDS: CEFTRIAXONE SODIUM 1 GM IVP SCH (10:08)
[2021-01-22 11:58] VITALS: BP 125/69
[2021-01-22] MEDS: OCTREOTIDE ACETATE 100 MCG/ML AMP IV SCH ×2 (14:00→20:37)
[2021-01-22 16:00] VITALS: BP 122/64
[2021-01-22 20:08] VITALS: BP 131/70
[2021-01-23 00:12] VITALS: BP 122/63
[2021-01-23] MEDS: LACTULOSE 20 GM/30 ML UDCUP PO SCH ×3 (03:28→21:00)
[2021-01-23 04:11] LABS: BASOPHILS % (AUTO) 0.5 % (0.0-5.0); EOSINOPHILS % (AUTO) 3.6 % (0.0-8.0); LYMPHOCYTES % (AUTO) 15.1 % (21.0-51.0); MEAN CORPUSCULAR HGB CONC 34.5 g/dL (32.0-36.0); MEAN CORPUSCULAR VOLUME 101.4 fL (79-99); NEUTROPHILS % (AUTO) 62.9 % (40.0-77.0); PLATELET COUNT (AUTO) 47 K/uL (130-400); RED BLOOD CELL COUNT(AUTO) 2.17 MIL/uL (4.50-6.20); RED CELL DISTRIBUTION WIDTH 17.2 % (11.0-15.5); WHITE BLOOD COUNT (AUTO) 5.6 K/uL (4.8-10.8)
[2021-01-23 04:12] VITALS: BP 120/63
[2021-01-23 04:23] LABS: ALBUMIN 3.3 g/dL (3.5-5.0); BILIRUBIN,TOTAL 11.7 mg/dL (0.2-1.0); CREATININE 1.6 mg/dL (0.5-1.5); POTASSIUM 3.9 mmol/L (3.5-5.1); TOTAL PROTEIN, SERUM 5.1 g/dL (6.0-8.3)
[2021-01-23 04:29] LABS: % IRON SATURATION 148.8 % (30-44)
[2021-01-23 07:00] VITALS: BP 125/71
[2021-01-23] MEDS: Vitamin B Complex/Vit C/Folic Acid PO SCH (10:03)
[2021-01-23] MEDS: PANTOPRAZOLE SODIUM 40 MG TABLET.DR PO SCH (10:03)
[2021-01-23] MEDS: RIFAXIMIN 550 MG TABLET PO SCH ×2 (10:03→21:00)
[2021-01-23] MEDS: MIDODRINE HCL 5 MG TABLET PO SCH ×3 (10:03→21:00)
[2021-01-23] MEDS: OCTREOTIDE ACETATE 100 MCG/ML AMP IV SCH ×3 (10:04→21:00)
[2021-01-23] MEDS: CEFTRIAXONE SODIUM 1 GM IVP SCH (10:15)
[2021-01-23 11:00] VITALS: BP 124/69
[2021-01-23] MEDS ORDERED: RIFAXIMIN 200 MG TABLET PO SCH (11:30)
[2021-01-23] MEDS ORDERED: ALBUMIN (HUMAN) 25% 200 ML IV SCH (15:00)
[2021-01-23 15:46] LABS: APPEARANCE BODY FLUID SLIGHTLY CLOUDY (CLEAR); COLOR,BODY FLUID YELLOW (LT YELLOW); GLUCOSE,BODY FLUID 185 mg/dL (1-40); SPECIMENTYPE,BODY FLUID ASCITES; TOTAL VOLUME,BODY FLUID 6000 mL
[2021-01-23 15:47] LABS: BODY FLUID RBC 225 /cu. mm.; BODY FLUID WBC 108 /cu. mm.
[2021-01-23 16:00] VITALS: BP 123/59
[2021-01-23 16:12] LABS: BF LYMPHOCYTE 30 %; BF MONOCYTE 1 %; BF OTHER CELLS 18
[2021-01-23 20:00] VITALS: BP 129/65
[2021-01-23 20:34] LABS: HEMATOCRIT 31.6 % (42-54)
[2021-01-24] VITALS (7 sets, daily range): BP systolic 107–134; BP diastolic 59–72
[2021-01-24] MEDS: LACTULOSE 20 GM/30 ML UDCUP PO SCH ×3 (04:29→18:59)
[2021-01-24 04:40] LABS: ALBUMIN 3.4 g/dL (3.5-5.0); BILIRUBIN,TOTAL 7.6 mg/dL (0.2-1.0); CREATININE 1.5 mg/dL (0.5-1.5); INR 1.55 (0.85-1.15); PROTHROMBIN TIME 16.2 SEC (9.6-11.6); TOTAL PROTEIN, SERUM 5.5 g/dL (6.0-8.3)
[2021-01-24 04:42] LABS: PARTIAL THROMBOPLASTIN TIME 40.4 SEC (26.3-35.5)
[2021-01-24 05:16] LABS: BASOPHILS % (AUTO) 0.2 % (0.0-5.0); EOSINOPHILS % (AUTO) 1.9 % (0.0-8.0); LYMPHOCYTES % (AUTO) 12.9 % (21.0-51.0); MEAN CORPUSCULAR HEMOGLOBIN 34.2 pg (27.0-33.0); MEAN CORPUSCULAR VOLUME 103.8 fL (79-99); MONOCYTES % (AUTO) 16.2 % (3.0-13.0); NEUTROPHILS % (AUTO) 68.2 % (40.0-77.0); PLATELET COUNT (AUTO) 72 K/uL (130-400); RED BLOOD CELL COUNT(AUTO) 1.84 MIL/uL (4.50-6.20); RED CELL DISTRIBUTION WIDTH 17.1 % (11.0-15.5); WHITE BLOOD COUNT (AUTO) 5.2 K/uL (4.8-10.8)
[2021-01-24 05:21] LABS: HEMATOCRIT 19.1 % (42-54)
[2021-01-24] MEDS: MIDODRINE HCL 5 MG TABLET PO SCH ×3 (09:00→21:19)
[2021-01-24] MEDS: Vitamin B Complex/Vit C/Folic Acid PO SCH (10:16)
[2021-01-24] MEDS: OCTREOTIDE ACETATE 100 MCG/ML AMP IV SCH ×3 (10:16→21:19)
[2021-01-24] MEDS: PANTOPRAZOLE SODIUM 40 MG TABLET.DR PO SCH (10:17)
[2021-01-24] MEDS: RIFAXIMIN 550 MG TABLET PO SCH ×2 (10:17→21:19)
[2021-01-24] MEDS: CEFTRIAXONE SODIUM 1 GM IVP SCH (10:23)
[2021-01-24 10:27] LABS: HEMATOCRIT 23.7 % (42-54)
[2021-01-25 04:03] VITALS: BP 130/69
[2021-01-25 04:59] LABS: BASOPHILS % (AUTO) 0.3 % (0.0-5.0); EOSINOPHILS % (AUTO) 2.7 % (0.0-8.0); HEMATOCRIT 22.8 % (42-54); LYMPHOCYTES % (AUTO) 12.3 % (21.0-51.0); MEAN CORPUSCULAR HEMOGLOBIN 33.6 pg (27.0-33.0); MEAN CORPUSCULAR HGB CONC 33.3 g/dL (32.0-36.0); MEAN CORPUSCULAR VOLUME 100.9 fL (79-99); MONOCYTES % (AUTO) 16.2 % (3.0-13.0); NEUTROPHILS % (AUTO) 67.9 % (40.0-77.0); PLATELET COUNT (AUTO) 74 K/uL (130-400); RED BLOOD CELL COUNT(AUTO) 2.26 MIL/uL (4.50-6.20); RED CELL DISTRIBUTION WIDTH 18.2 % (11.0-15.5); WHITE BLOOD COUNT (AUTO) 7.1 K/uL (4.8-10.8)
[2021-01-25 05:13] LABS: ALBUMIN 3.2 g/dL (3.5-5.0); CREATININE 1.2 mg/dL (0.5-1.5); POTASSIUM 3.7 mmol/L (3.5-5.1); TOTAL PROTEIN, SERUM 5.3 g/dL (6.0-8.3)
[2021-01-25 07:00] VITALS: BP 123/69
[2021-01-25] MEDS: RIFAXIMIN 550 MG TABLET PO SCH (09:49)
[2021-01-25] MEDS: MIDODRINE HCL 5 MG TABLET PO SCH ×2 (09:49→15:29)
[2021-01-25] MEDS: Vitamin B Complex/Vit C/Folic Acid PO SCH (09:49)
[2021-01-25] MEDS: PANTOPRAZOLE SODIUM 40 MG TABLET.DR PO SCH (09:49)
[2021-01-25] MEDS: CEFTRIAXONE SODIUM 1 GM IVP SCH (09:54)
[2021-01-25] MEDS: OCTREOTIDE ACETATE 100 MCG/ML AMP IV SCH (09:55)
[2021-01-25 11:00] VITALS: BP 137/76
[2021-01-25] MEDS ORDERED: OCTREOTIDE ACETATE 100 MCG/ML AMP SQ SCH (14:00)
[2021-01-25] MEDS ORDERED: MIDO10TA PO (15:12)
[2021-01-25] MEDS ORDERED: CYAN250010 PO (15:12)
[2021-01-25] MEDS ORDERED: FOLI0.8C PO (15:12)
[2021-01-25] MEDS ORDERED: RIFA550T PO (15:12)
[2021-01-25] MEDS: LACTULOSE 20 GM/30 ML UDCUP PO SCH (15:29)
== END 2021-01-25 17:30 | disposition home or self-care (01) | DRG 432 ==
LOC: EDH 07:27 → EDHIP 11:13 → 4BH 01-22 04:00
PROVIDERS: ADMIT Internal Medicine; ATTEND Internal Medicine
PROC: 30233N1 Transfusion of Nonautologous Red Blood Cells into Peripheral Vein, Percutaneous Approach (ICD-10-PCS; 2021-01-21)
PROC: 0W9G3ZZ Drainage of Peritoneal Cavity, Percutaneous Approach (ICD-10-PCS; principal; 2021-01-23)
PROC: 30233K1 Transfusion of Nonautologous Frozen Plasma into Peripheral Vein, Percutaneous Approach (ICD-10-PCS; 2021-01-23)
PROC: 30233R1 Transfusion of Nonautologous Platelets into Peripheral Vein, Percutaneous Approach (ICD-10-PCS; 2021-01-24)
DX: K70.31 Alcoholic cirrhosis of liver with ascites (principal); K76.7 Hepatorenal syndrome; N17.9 Acute kidney failure, unspecified; E87.1 Hypo-osmolality and hyponatremia; D68.9 Coagulation defect, unspecified; D62 Acute posthemorrhagic anemia; K72.90 Hepatic failure, unspecified without coma; D69.6 Thrombocytopenia, unspecified; D63.8 Anemia in other chronic diseases classified elsewhere; F10.10 Alcohol abuse, uncomplicated; K80.20 Calculus of gallbladder without cholecystitis without obstruction; N18.9 Chronic kidney disease, unspecified; R04.0 Epistaxis; R16.1 Splenomegaly, not elsewhere classified; I95.9 Hypotension, unspecified; Z79.899 Other long term (current) drug therapy
CPT/HCPCS: 36415; 36430; 49083; 71045; 74176; 76770; 80053; 80305; 81001; 82140; 82570; 82728; 82945; 83540; 83550; 83615; 83690; 83735; 83930; 83935; 84100; 84145; 84157; 84300; 84443; 84484; 84550; 85014; 85018; 85025; 85610; 85730; 86850; 86900; 86901; 86923; 86927; 87040; 87071; 87205; 89051; C9113; G0378; J0696; J0780; J1200; J2250; J2354; J2405; J3430; J3490; J7030; P9016; P9017; P9034; P9046

== ENCOUNTER 2021-01-29 23:04 | Inpatient (IN) | payer OTHER ==
[~2021-01-29] VITALS: Ht 170.2 cm; Wt 76.1 kg
[~2021-01-29 23:04] MED LIST changes: -LEVO250T59 PO; +RIFA550T PO
[2021-01-30] VITALS (15 sets, daily range): BP systolic 92–119; BP diastolic 42–69
[2021-01-30 00:57] LABS: BASOPHILS % (AUTO) 0.6 % (0.0-5.0); EOSINOPHILS % (AUTO) 1.3 % (0.0-8.0); HEMATOCRIT 27.2 % (42-54); LYMPHOCYTES % (AUTO) 14.9 % (21.0-51.0); MEAN CORPUSCULAR HEMOGLOBIN 34.9 pg (27.0-33.0); MEAN CORPUSCULAR HGB CONC 32.7 g/dL (32.0-36.0); MEAN CORPUSCULAR VOLUME 106.7 fL (79-99); MONOCYTES % (AUTO) 17.4 % (3.0-13.0); NEUTROPHILS % (AUTO) 65.5 % (40.0-77.0); PLATELET COUNT (AUTO) 82 K/uL (130-400); RED BLOOD CELL COUNT(AUTO) 2.55 MIL/uL (4.50-6.20); WHITE BLOOD COUNT (AUTO) 6.2 K/uL (4.8-10.8)
[2021-01-30 01:00] LABS: CREATININE 1.6 mg/dL (0.5-1.5); POTASSIUM 3.9 mmol/L (3.5-5.1)
[2021-01-30 01:04] LABS: ALBUMIN 3.3 g/dL (3.5-5.0); BILIRUBIN,TOTAL 9.3 mg/dL (0.2-1.0); TOTAL PROTEIN, SERUM 6.2 g/dL (6.0-8.3)
[2021-01-30] MEDS ORDERED: DiphenhydrAMINE HCL 50 MG/ML VIAL IV PRN (03:00)
[2021-01-30] MEDS ORDERED: DIPHENHYDRAMINE HCL 25 MG CAPSULE PO PRN (03:00)
[2021-01-30] MEDS ORDERED: MORPHINE 2 MG SYG (2MG/1ML) IV PRN (03:00)
[2021-01-30] MEDS ORDERED: ONDANSETRON HCL 4 MG/2 ML VIAL IV PRN (03:00)
[2021-01-30] MEDS ORDERED: MORPHINE 4 MG SYG (4MG/1ML) IV PRN (03:00)
[2021-01-30] MEDS ORDERED: MAG HYDROX/AL HYDROX/SIMETH ES 30 ML SUSP UDCUP PO PRN (03:00)
[2021-01-30] MEDS: LACTULOSE 20 GM/30 ML UDCUP PO SCH ×3 (03:04→19:17)
[2021-01-30 03:30] LABS: APPEARANCE,URINE Clear (CLEAR); BILIRUBIN,URINE Moderate (NEGATIVE); COLOR,URINE Dark Yellow (YELLOW); GLUCOSE, URINE (UA) Negative (NEGATIVE); KETONES,URINE Negative (NEGATIVE); LEUKOCYTE ESTERASE ,URINE Trace (NEGATIVE); NITRATE,URINE Positive (NEGATIVE); OCCULT BLOOD,URINE Negative (NEGATIVE); PH,URINE 5.5 (5.0-8.0); PROTEIN,URINE Trace mg/dL (NEGATIVE)
[2021-01-30 04:00] LABS: RBC,URINE 0-1 /HPF (0-1)
[2021-01-30 04:01] LABS: BACTERIA,URINE Few /HPF (None Seen); MUCUS,URINE Moderate LPF (None Seen)
[2021-01-30] MEDS: MIDODRINE HCL 5 MG TABLET PO SCH ×3 (08:15→21:17)
[2021-01-30] MEDS: CEFTRIAXONE SODIUM 500 MG VIAL IV SCH (08:15)
[2021-01-30] MEDS ORDERED: ALBUMIN (HUMAN) 25% 200 ML IV ONE (08:28)
[2021-01-30 13:53] LABS: APPEARANCE BODY FLUID SLIGHTLY CLOUDY (CLEAR); COLOR,BODY FLUID YELLOW (LT YELLOW); SPECIMENTYPE,BODY FLUID ASCITES
[2021-01-30 13:54] LABS: BODY FLUID WBC 38 /cu. mm.; TOTAL VOLUME,BODY FLUID 12000 mL
[2021-01-30 13:55] LABS: BODY FLUID RBC 825 /cu. mm.
[2021-01-30 13:57] LABS: BF LYMPHOCYTE 71 %; BF MONOCYTE 21 %
[2021-01-30] MEDS ORDERED: ALBUMIN (HUMAN) 25% 50 ML IV SCH (14:45)
[2021-01-30] MEDS ORDERED: ALBUMIN (HUMAN) 25% 50 ML IV ONE (14:46)
[2021-01-31] MEDS ORDERED: BENZOCAINE/MENTH/CETYLPYRD CL 1 EACH LOZENGE MM ONE (01:48)
[2021-01-31] MEDS ORDERED: BENZOCAINE/MENTH/CETYLPYRD CL 1 EACH LOZENGE MM PRN (02:00)
[2021-01-31] MEDS: LACTULOSE 20 GM/30 ML UDCUP PO SCH ×2 (03:22→11:00)
[2021-01-31 04:00] VITALS: BP 116/65
[2021-01-31 05:43] LABS: BASOPHILS % (AUTO) 0.5 % (0.0-5.0); EOSINOPHILS % (AUTO) 0.9 % (0.0-8.0); LYMPHOCYTES % (AUTO) 13.1 % (21.0-51.0); MEAN CORPUSCULAR HEMOGLOBIN 33.8 pg (27.0-33.0); MEAN CORPUSCULAR HGB CONC 33.3 g/dL (32.0-36.0); MEAN CORPUSCULAR VOLUME 101.3 fL (79-99); MONOCYTES % (AUTO) 14.3 % (3.0-13.0); NEUTROPHILS % (AUTO) 70.7 % (40.0-77.0); PLATELET COUNT (AUTO) 62 K/uL (130-400); RED BLOOD CELL COUNT(AUTO) 2.37 MIL/uL (4.50-6.20); RED CELL DISTRIBUTION WIDTH 17.4 % (11.0-15.5); WHITE BLOOD COUNT (AUTO) 6.6 K/uL (4.8-10.8)
[2021-01-31 05:59] LABS: ALBUMIN 3.1 g/dL (3.5-5.0); BILIRUBIN,TOTAL 8.4 mg/dL (0.2-1.0); CREATININE 1.3 mg/dL (0.5-1.5); POTASSIUM 4.1 mmol/L (3.5-5.1); TOTAL PROTEIN, SERUM 5.2 g/dL (6.0-8.3)
[2021-01-31 08:00] VITALS: BP 102/58
[2021-01-31] MEDS: CEFTRIAXONE SODIUM 500 MG VIAL IV SCH (08:44)
[2021-01-31] MEDS: MIDODRINE HCL 5 MG TABLET PO SCH (08:45)
== END 2021-01-31 14:00 | disposition home or self-care (01) | DRG 432 ==
LOC: EDH 23:04 → EDHIP 23:05 → OBSVTOIN 23:05 → 3BH 01-30 20:55
PROVIDERS: ADMIT Family Medicine; ATTEND Family Medicine
PROC: 0W9G3ZZ Drainage of Peritoneal Cavity, Percutaneous Approach (ICD-10-PCS; principal; 2021-01-30)
DX: K70.31 Alcoholic cirrhosis of liver with ascites (principal); K76.7 Hepatorenal syndrome; N39.0 Urinary tract infection, site not specified; D64.9 Anemia, unspecified; N18.9 Chronic kidney disease, unspecified; Z83.3 Family history of diabetes mellitus
CPT/HCPCS: 36415; 49083; 71101; 80053; 81001; 82140; 83690; 84484; 85025; 87071; 87077; 87088; 87186; 87205; 89051; 93005; 96365; G0378; J0696; P9046; P9047

== ENCOUNTER 2021-02-03 21:41 | Inpatient (IN) | payer OTHER ==
[~2021-02-03] VITALS: Ht 157.5 cm; Wt 71.9 kg
[2021-02-03 22:26] LABS: BASOPHILS % (AUTO) 0.6 % (0.0-5.0); EOSINOPHILS % (AUTO) 2.1 % (0.0-8.0); HEMATOCRIT 25.1 % (42-54); LYMPHOCYTES % (AUTO) 15.8 % (21.0-51.0); MEAN CORPUSCULAR HGB CONC 33.1 g/dL (32.0-36.0); MEAN CORPUSCULAR VOLUME 105.9 fL (79-99); MONOCYTES % (AUTO) 16.3 % (3.0-13.0); NEUTROPHILS % (AUTO) 64.7 % (40.0-77.0); PLATELET COUNT (AUTO) 72 K/uL (130-400); RED BLOOD CELL COUNT(AUTO) 2.37 MIL/uL (4.50-6.20); RED CELL DISTRIBUTION WIDTH 17.3 % (11.0-15.5); WHITE BLOOD COUNT (AUTO) 6.2 K/uL (4.8-10.8)
[2021-02-03 22:36] LABS: CREATININE 1.7 mg/dL (0.5-1.5); POTASSIUM 4.4 mmol/L (3.5-5.1)
[2021-02-03 22:40] LABS: ALBUMIN 3.1 g/dL (3.5-5.0); BILIRUBIN,TOTAL 8.7 mg/dL (0.2-1.0); TOTAL PROTEIN, SERUM 5.9 g/dL (6.0-8.3)
[2021-02-03 22:55] LABS: INR 1.68 (0.85-1.15); PROTHROMBIN TIME 17.5 SEC (9.6-11.6)
[2021-02-03 23:47] VITALS: BP 139/76
[2021-02-04] VITALS (13 sets, daily range): BP systolic 108–142; BP diastolic 52–74
[2021-02-04] MEDS ORDERED: NITROGLYCERIN 0.4 MG SL TAB SL PRN (01:00)
[2021-02-04] MEDS ORDERED: DIPHENHYDRAMINE HCL 25 MG CAPSULE PO PRN (01:00)
[2021-02-04] MEDS ORDERED: GUAIFENESIN-DM 200/20 MG 10 ML PO PRN (01:00)
[2021-02-04] MEDS ORDERED: ALBUTEROL SULFATE 0.083% 2.5 MG/3 ML INH IH PRN (01:00)
[2021-02-04] MEDS ORDERED: MAG HYDROX/AL HYDROX/SIMETH ES 30 ML SUSP UDCUP PO PRN (01:00)
[2021-02-04] MEDS ORDERED: HYDRALAZINE HCL 20 MG/ML VIAL IV PRN (01:00)
[2021-02-04] MEDS ORDERED: ACETAMINOPHEN 325 MG TAB PO PRN (01:00)
[2021-02-04] MEDS ORDERED: ONDANSETRON HCL 4 MG/2 ML VIAL IV PRN (01:00)
[2021-02-04] MEDS ORDERED: ACETAMINOPHEN-CODEINE 300/30MG TAB PO PRN ×2 (01:00)
[2021-02-04] MEDS: CEFTRIAXONE SODIUM 1 GM IV SCH (07:25)
[2021-02-04] MEDS ORDERED: ALBUMIN (HUMAN) 25% 200 ML IV ONE (08:03)
[2021-02-04] MEDS ORDERED: ALBUMIN (HUMAN) 25% 50 ML IV SCH (08:45)
[2021-02-04] MEDS ORDERED: FOLIC ACID 1 MG TABLET PO SCH (09:00)
[2021-02-04] MEDS ORDERED: CYANOCOBALAMIN (VITAMIN B-12) 1,000 MCG TABLET PO SCH (09:00)
[2021-02-04] MEDS: LACTULOSE 20 GM/30 ML UDCUP PO SCH ×2 (09:47→21:00)
[2021-02-04] MEDS: MIDODRINE HCL 5 MG TABLET PO SCH ×3 (09:47→21:24)
[2021-02-04] MEDS: RIFAXIMIN 550 MG TABLET PO SCH ×2 (10:27→21:24)
[2021-02-04 12:56] LABS: ALBUMIN,BODY FLUID 0.7 g/dL
[2021-02-04 12:57] LABS: APPEARANCE BODY FLUID CLEAR (CLEAR); COLOR,BODY FLUID YELLOW (LT YELLOW); SPECIMENTYPE,BODY FLUID ASCITES; TOTAL VOLUME,BODY FLUID 10000 mL
[2021-02-04 13:04] LABS: BODY FLUID RBC 133 /cu. mm.
[2021-02-04 13:05] LABS: BODY FLUID WBC 55 /cu. mm.
[2021-02-04 13:07] LABS: BF LYMPHOCYTE 51 %; BF MESOTHELIAL 12 %; BF MONOCYTE 4 %
[2021-02-05 02:00] VITALS: BP 120/51
[2021-02-05 03:45] VITALS: BP 113/54
[2021-02-05 05:38] LABS: BASOPHILS % (AUTO) 0.6 % (0.0-5.0); EOSINOPHILS % (AUTO) 2.5 % (0.0-8.0); LYMPHOCYTES % (AUTO) 19.3 % (21.0-51.0); MEAN CORPUSCULAR HEMOGLOBIN 33.8 pg (27.0-33.0); MEAN CORPUSCULAR VOLUME 99.5 fL (79-99); MONOCYTES % (AUTO) 17.6 % (3.0-13.0); NEUTROPHILS % (AUTO) 59.4 % (40.0-77.0); PLATELET COUNT (AUTO) 46 K/uL (130-400); RED CELL DISTRIBUTION WIDTH 17.2 % (11.0-15.5); WHITE BLOOD COUNT (AUTO) 5.1 K/uL (4.8-10.8)
[2021-02-05 05:45] LABS: CREATININE 1.2 mg/dL (0.5-1.5); MAGNESIUM 2.2 mg/dL (1.80-2.40); POTASSIUM 4.9 mmol/L (3.5-5.1)
[2021-02-05] MEDS: CEFTRIAXONE SODIUM 1 GM IV SCH (05:57)
[2021-02-05 06:02] LABS: HEMATOCRIT 20.9 % (42-54)
[2021-02-05 08:24] VITALS: BP 114/59
[2021-02-05] MEDS: LACTULOSE 20 GM/30 ML UDCUP PO SCH ×2 (09:00→19:47)
[2021-02-05] MEDS ORDERED: ONDANSETRON HCL 4 MG/2 ML VIAL IVP PRN (11:00)
[2021-02-05 11:44] VITALS: BP 113/58
[2021-02-05] MEDS: MIDODRINE HCL 5 MG TABLET PO SCH ×2 (15:54→19:46)
[2021-02-05 17:13] VITALS: BP 111/56
[2021-02-05] MEDS ORDERED: EPOETIN ALFA-EPBX (NON-ESRD) 10,000 UNIT/ML VIAL SQ SCH (19:00)
[2021-02-05] MEDS ORDERED: PHYTONADIONE 10 MG/1 ML AMP IM SCH (19:00)
[2021-02-05] MEDS ORDERED: RIFAXIMIN 550 MG TABLET PO SCH (21:00)
[2021-02-06] MEDS ORDERED: FOLIC ACID 1 MG TABLET PO SCH (09:00)
== END 2021-02-05 20:05 | disposition home or self-care (01) | DRG 432 ==
LOC: EDH 21:41 → EDHIP 21:42 → OBSVTOIN 21:42 → 3AH 02-05 00:24
PROVIDERS: ADMIT Internal Medicine; ATTEND Internal Medicine
PROC: 0W9G3ZZ Drainage of Peritoneal Cavity, Percutaneous Approach (ICD-10-PCS; principal; 2021-02-04)
DX: K70.31 Alcoholic cirrhosis of liver with ascites (principal); K76.7 Hepatorenal syndrome; E87.1 Hypo-osmolality and hyponatremia; I85.10 Secondary esophageal varices without bleeding; N17.9 Acute kidney failure, unspecified; D64.9 Anemia, unspecified; D69.6 Thrombocytopenia, unspecified; E11.22 Type 2 diabetes mellitus with diabetic chronic kidney disease; I12.9 Hypertensive chronic kidney disease with stage 1 through stage 4 chronic kidney disease, or unspecified chronic kidney disease; I95.89 Other hypotension; K72.90 Hepatic failure, unspecified without coma; K80.20 Calculus of gallbladder without cholecystitis without obstruction; N18.9 Chronic kidney disease, unspecified
CPT/HCPCS: 36415; 49083; 71045; 74176; 80048; 80053; 82042; 82140; 83690; 83735; 83880; 84157; 85025; 85610; 86850; 86900; 86901; 87071; 87205; 89051; 93005; 94664; 96365; G0378; J0696; J3430; P9046

== ENCOUNTER 2021-02-09 07:38 | Emergency (ER) | payer MEDICAID, OTHER ==
[~2021-02-09] VITALS: Ht 170.2 cm; Wt 72.6 kg
[2021-02-09 07:48] VITALS: BP 114/70
[2021-02-09 08:32] LABS: BASOPHILS % (AUTO) 0.5 % (0.0-5.0); EOSINOPHILS % (AUTO) 2.6 % (0.0-8.0); HEMATOCRIT 26.3 % (42-54); LYMPHOCYTES % (AUTO) 17.5 % (21.0-51.0); MEAN CORPUSCULAR HEMOGLOBIN 35.2 pg (27.0-33.0); MEAN CORPUSCULAR HGB CONC 34.2 g/dL (32.0-36.0); MEAN CORPUSCULAR VOLUME 102.7 fL (79-99); MONOCYTES % (AUTO) 17.7 % (3.0-13.0); NEUTROPHILS % (AUTO) 60.5 % (40.0-77.0); NUCLEATED RED BLOOD CELLS 0.5 % (0.0-0.19); PLATELET COUNT (AUTO) 79 K/uL (130-400); RED BLOOD CELL COUNT(AUTO) 2.56 MIL/uL (4.50-6.20); RED CELL DISTRIBUTION WIDTH 17.8 % (11.0-15.5); WHITE BLOOD COUNT (AUTO) 6.5 K/uL (4.8-10.8)
[2021-02-09 08:46] LABS: INR 1.56 (0.85-1.15); PROTHROMBIN TIME 16.3 SEC (9.6-11.6)
[2021-02-09 08:47] LABS: PARTIAL THROMBOPLASTIN TIME 36.9 SEC (26.3-35.5)
[2021-02-09 08:49] LABS: ALBUMIN 3.3 g/dL (3.5-5.0); BILIRUBIN,TOTAL 9.7 mg/dL (0.2-1.0); CREATININE 1.8 mg/dL (0.5-1.5); POTASSIUM 4.7 mmol/L (3.5-5.1); TOTAL PROTEIN, SERUM 6.2 g/dL (6.0-8.3)
[2021-02-09 09:12] VITALS: BP 121/68
[2021-02-09] MEDS ORDERED: ALBUMIN (HUMAN) 25% 200 ML IV ONE (11:31)
[2021-02-09 11:50] VITALS: BP 123/56
== END 2021-02-09 11:53 | disposition home or self-care (01) ==
LOC: EDH 07:38
DX: K70.31 Alcoholic cirrhosis of liver with ascites (principal); K76.7 Hepatorenal syndrome; I10 Essential (primary) hypertension
CPT/HCPCS: 36415; 49083; 80053; 85025; 85610; 85730; 96365; C1729; P9046

== ENCOUNTER 2021-02-12 15:16 | Inpatient (IN) | payer OTHER ==
[~2021-02-12] VITALS: Ht 170.2 cm; Wt 79.2 kg
[2021-02-12 15:20] VITALS: BP 133/49
[2021-02-12] MEDS ORDERED: ONDANSETRON 4MG TABLET PO STA (15:33)
[2021-02-12 16:03] LABS: BASOPHILS % (AUTO) 0.4 % (0.0-5.0); EOSINOPHILS % (AUTO) 1.5 % (0.0-8.0); HEMATOCRIT 25.9 % (42-54); LYMPHOCYTES % (AUTO) 13.2 % (21.0-51.0); MEAN CORPUSCULAR HEMOGLOBIN 34.6 pg (27.0-33.0); MONOCYTES % (AUTO) 18.6 % (3.0-13.0); NEUTROPHILS % (AUTO) 65.7 % (40.0-77.0); PLATELET COUNT (AUTO) 93 K/uL (130-400); RED BLOOD CELL COUNT(AUTO) 2.54 MIL/uL (4.50-6.20); RED CELL DISTRIBUTION WIDTH 17.7 % (11.0-15.5); WHITE BLOOD COUNT (AUTO) 7.8 K/uL (4.8-10.8)
[2021-02-12 16:23] LABS: TOTAL PROTEIN, SERUM 5.5 g/dL (6.0-8.3)
[2021-02-12 16:28] LABS: POTASSIUM 6.7 mmol/L (3.5-5.1)
[2021-02-12] MEDS ORDERED: LACTULOSE 20 GM/30 ML UDCUP PO STA (16:31)
[2021-02-12] MEDS ORDERED: CALCIUM GLUCONATE 1 GM/10 ML VIAL IV ONE (16:44)
[2021-02-12] MEDS ORDERED: DEXTROSE 50%-WATER 25 GM/50 ML VIAL IV ONE (16:45)
[2021-02-12] MEDS ORDERED: DEXTROSE 50%-WATER 50 ML DISP.SYRIN IV ONE (16:45)
[2021-02-12] MEDS ORDERED: CALCIUM GLUCONATE 1 GM in SODIUM CHLORIDE 0.9% 100 ML IV ONE (16:45)
[2021-02-12] MEDS ORDERED: INSULIN HUMULIN R 100 UNIT/ML 3ML IV ONE (16:45)
[2021-02-12] MEDS ORDERED: SODIUM BICARB 8.4% 50ML SYRINGE IVP ONE (16:45)
[2021-02-12] MEDS ORDERED: ALBUTEROL SULFATE 0.083% 2.5 MG/3 ML INH IH ONE (16:52)
[2021-02-12 16:59] VITALS: BP 133/49
[2021-02-12] MEDS ORDERED: LACTULOSE 20 GM/30 ML UDCUP PO PRN (17:15)
[2021-02-12] MEDS ORDERED: ACETAMINOPHEN 325 MG TAB PO PRN (17:15)
[2021-02-12] MEDS ORDERED: ONDANSETRON 4MG INJ IV PRN (17:15)
[2021-02-12 17:52] VITALS: BP 122/57
[2021-02-12] MEDS: LACTULOSE 20 GM/30 ML UDCUP PO SCH (18:18)
[2021-02-12] MEDS: ALBUTEROL SULFATE 0.083% 2.5 MG/3 ML INH IH SCH (18:54)
[2021-02-12 19:30] VITALS: BP 109/52
[2021-02-12 19:32] LABS: INR 1.65 (0.85-1.15); PROTHROMBIN TIME 17.2 SEC (9.6-11.6)
[2021-02-12 19:34] LABS: PARTIAL THROMBOPLASTIN TIME 42.1 SEC (26.3-35.5)
[2021-02-12 19:41] LABS: CREATINE KINASE, TOTAL 63 U/L (21-232); MYOGLOBIN 58 ng/mL (10-92); TROPONIN I < 0.04 ng/mL (0.00-0.06)
[2021-02-12 20:04] LABS: APPEARANCE,URINE Clear (CLEAR); BILIRUBIN,URINE Moderate (NEGATIVE); COLOR,URINE Orange (YELLOW); GLUCOSE, URINE (UA) Negative (NEGATIVE); KETONES,URINE Negative (NEGATIVE); LEUKOCYTE ESTERASE ,URINE Small (NEGATIVE); NITRATE,URINE Positive (NEGATIVE); OCCULT BLOOD,URINE Negative (NEGATIVE); PROTEIN,URINE Negative (NEGATIVE)
[2021-02-12 20:09] LABS: RBC,URINE 0-1 /HPF (0-1)
[2021-02-12 20:12] LABS: BACTERIA,URINE Few /HPF (None Seen); OTHER CRYSTALS,URINE LEUCINE 1+ /LPF (None Seen); SQUAMOUS EPITHELIAL CELL,UR Rare /HPF (0-2)
[2021-02-12 21:00] VITALS: BP 112/55
[2021-02-12] MEDS: RIFAXIMIN 550 MG TABLET PO SCH (21:00)
[2021-02-12] MEDS: MIDODRINE HCL 5 MG TABLET PO SCH (21:12)
[2021-02-12 23:30] VITALS: BP 118/60
[2021-02-13] VITALS (9 sets, daily range): BP systolic 94–121; BP diastolic 51–67
[2021-02-13] MEDS: ALBUTEROL SULFATE 0.083% 2.5 MG/3 ML INH IH SCH ×4 (01:08→18:22)
[2021-02-13] MEDS: LACTULOSE 20 GM/30 ML UDCUP PO SCH ×3 (01:13→14:00)
[2021-02-13 05:29] LABS: BASOPHILS % (AUTO) 0.5 % (0.0-5.0); EOSINOPHILS % (AUTO) 1.6 % (0.0-8.0); LYMPHOCYTES % (AUTO) 15.7 % (21.0-51.0); MEAN CORPUSCULAR HEMOGLOBIN 34.6 pg (27.0-33.0); MEAN CORPUSCULAR HGB CONC 34.6 g/dL (32.0-36.0); MONOCYTES % (AUTO) 18.1 % (3.0-13.0); NEUTROPHILS % (AUTO) 63.3 % (40.0-77.0); PLATELET COUNT (AUTO) 71 K/uL (130-400); RED CELL DISTRIBUTION WIDTH 17.1 % (11.0-15.5); WHITE BLOOD COUNT (AUTO) 6.3 K/uL (4.8-10.8)
[2021-02-13 06:08] LABS: ALBUMIN 2.8 g/dL (3.5-5.0); BILIRUBIN,TOTAL 13.4 mg/dL (0.2-1.0); CREATININE 2.1 mg/dL (0.5-1.5); MAGNESIUM 2.9 mg/dL (1.80-2.40); PHOSPHORUS 5.1 mg/dL (2.5-4.9); POTASSIUM 5.6 mmol/L (3.5-5.1); TOTAL PROTEIN, SERUM 5.3 g/dL (6.0-8.3); URIC ACID 9.7 mg/dL (2.6-7.2)
[2021-02-13] MEDS ORDERED: INSULIN HUMULIN R 100 UNIT/ML 3ML IV SCH (08:00)
[2021-02-13] MEDS ORDERED: DEXTROSE 50%-WATER 25 GM/50 ML VIAL IV SCH (08:00)
[2021-02-13] MEDS ORDERED: Vitamin B Complex/Vit C/Folic Acid PO SCH (09:00)
[2021-02-13] MEDS: RIFAXIMIN 550 MG TABLET PO SCH (09:12)
[2021-02-13] MEDS: MIDODRINE HCL 5 MG TABLET PO SCH ×2 (09:12→14:00)
[2021-02-13] MEDS ORDERED: ALBUMIN (HUMAN) 25% 200 ML IV SCH (15:45)
[2021-02-13 16:35] LABS: APPEARANCE BODY FLUID SLIGHTLY CLOUDY (CLEAR); COLOR,BODY FLUID YELLOW (LT YELLOW); SPECIMENTYPE,BODY FLUID ASCITES
[2021-02-13 16:36] LABS: BODY FLUID WBC 60 /cu. mm.; TOTAL VOLUME,BODY FLUID 9000 mL
[2021-02-13 16:37] LABS: BODY FLUID RBC 276 /cu. mm.
[2021-02-13 16:44] LABS: BF LYMPHOCYTE 29 %; BF MESOTHELIAL 65 %
== END 2021-02-13 19:45 | disposition left against medical advice (07) | DRG 441 ==
LOC: EDH 15:16 → INTOOBSV 15:17 → OBSVTOIN 15:17 → EDHIP 15:17 → 3BH 02-13 00:13
PROVIDERS: ADMIT Hospitalist; ATTEND Hospitalist
DX: K76.7 Hepatorenal syndrome (principal); G93.41 Metabolic encephalopathy; N17.9 Acute kidney failure, unspecified; E87.1 Hypo-osmolality and hyponatremia; K70.31 Alcoholic cirrhosis of liver with ascites; K70.40 Alcoholic hepatic failure without coma; E87.5 Hyperkalemia; D69.6 Thrombocytopenia, unspecified; N18.9 Chronic kidney disease, unspecified; E11.22 Type 2 diabetes mellitus with diabetic chronic kidney disease; I12.9 Hypertensive chronic kidney disease with stage 1 through stage 4 chronic kidney disease, or unspecified chronic kidney disease; F10.10 Alcohol abuse, uncomplicated; Z87.891 Personal history of nicotine dependence
CPT/HCPCS: 36415; 49083; 71045; 80053; 81001; 82140; 82550; 82948; 83735; 83874; 84100; 84132; 84484; 84550; 85025; 85610; 85730; 87071; 87088; 87205; 89051; 93005; 94640; 94664; G0378; J0610; J1815; J2405; J7070; P9046; Q0162

== ENCOUNTER 2021-02-17 06:18 | Observation (INO) | payer OTHER ==
[~2021-02-17] VITALS: Ht 170.2 cm; Wt 77.1 kg
[2021-02-17] VITALS (9 sets, daily range): BP systolic 95–110; BP diastolic 48–64
[2021-02-17 07:53] LABS: BASOPHILS % (AUTO) 0.3 % (0.0-5.0); EOSINOPHILS % (AUTO) 1.1 % (0.0-8.0); HEMATOCRIT 21.6 % (42-54); LYMPHOCYTES % (AUTO) 14.9 % (21.0-51.0); MEAN CORPUSCULAR HEMOGLOBIN 34.8 pg (27.0-33.0); MEAN CORPUSCULAR HGB CONC 33.8 g/dL (32.0-36.0); MEAN CORPUSCULAR VOLUME 102.9 fL (79-99); MONOCYTES % (AUTO) 14.4 % (3.0-13.0); NEUTROPHILS % (AUTO) 68.7 % (40.0-77.0); PLATELET COUNT (AUTO) 76 K/uL (130-400); RED CELL DISTRIBUTION WIDTH 15.9 % (11.0-15.5); WHITE BLOOD COUNT (AUTO) 6.2 K/uL (4.8-10.8)
[2021-02-17 08:03] LABS: INR 1.57 (0.85-1.15); PROTHROMBIN TIME 16.4 SEC (9.6-11.6)
[2021-02-17 08:16] LABS: ALANINE AMINOTRANSFERASE 43 U/L (12-78); ASPARTATE AMINOTRANSFERASE 64 U/L (10-37); BILIRUBIN,TOTAL 14.9 mg/dL (0.2-1.0); CARBON DIOXIDE 21 mmol/L (21-32); CHLORIDE 95 mmol/L (101-111); CREATINE KINASE, TOTAL 107 U/L (21-232); CREATININE 1.6 mg/dL (0.5-1.5); GLOMERULAR FILTR. RATE CALC 51 mL/min (>60); GLUCOSE,RANDOM 117 mg/dL (70-105); LIPASE 322 U/L (114-286); MYOGLOBIN 111 ng/mL (10-92); POTASSIUM 5.6 mmol/L (3.5-5.1); SODIUM SERUM 125 mmol/L (136-145); TOTAL PROTEIN, SERUM 5.4 g/dL (6.0-8.3); TROPONIN I < 0.04 ng/mL (0.00-0.06); UREA NITROGEN, BLOOD 49 mg/dL (7-18)
[2021-02-17 08:21] LABS: B-TYPE NATRIURETIC PEPTIDE 35 pg/mL (0-100)
[2021-02-17 09:07] LABS: AMMONIA 87 umol/L (11-32)
[2021-02-17 09:11] LABS: ALCOHOL, BLOOD < 3 mg/dL (0-10)
[2021-02-17] MEDS ORDERED: LACTULOSE 20 GM/30 ML UDCUP PO SCH (09:15)
[2021-02-17] MEDS ORDERED: CEFTRIAXONE 1G VIAL IV SCH (11:15)
[2021-02-17] MEDS ORDERED: ACETAMINOPHEN 325 MG TAB PO PRN ×2 (11:15)
[2021-02-17] MEDS ORDERED: ONDANSETRON 4MG INJ IV PRN (11:15)
[2021-02-17] MEDS: RIFAXIMIN 200 MG TABLET PO SCH ×2 (11:15→21:21)
[2021-02-17] MEDS: FAMOTIDINE 20MG VIAL IV SCH (11:23)
[2021-02-17] MEDS ORDERED: ALBUMIN (HUMAN) 25% 200 ML IV ONE (11:50)
[2021-02-17 11:59] LABS: INR 1.64 (0.85-1.15); PROTHROMBIN TIME 17.1 SEC (9.6-11.6)
[2021-02-17 12:00] LABS: ALBUMIN 2.8 g/dL (3.5-5.0)
[2021-02-17 12:01] LABS: PARTIAL THROMBOPLASTIN TIME 39.3 SEC (26.3-35.5)
[2021-02-17] MEDS ORDERED: 0.9%NACL 100ML 100 ML ONE (13:14)
[2021-02-17] MEDS: MIDODRINE HCL 5 MG TABLET PO SCH ×2 (13:47→21:21)
[2021-02-17] MEDS: OCTREOTIDE ACETATE 100 MCG/ML AMP SQ SCH ×2 (13:47→21:21)
[2021-02-17 15:47] LABS: APPEARANCE,URINE Clear (CLEAR); BILIRUBIN,URINE Small (NEGATIVE); COLOR,URINE Dark Yellow (YELLOW); GLUCOSE, URINE (UA) Negative (NEGATIVE); KETONES,URINE Trace mg/dL (NEGATIVE); LEUKOCYTE ESTERASE ,URINE Small (NEGATIVE); NITRATE,URINE Negative (NEGATIVE); OCCULT BLOOD,URINE Negative (NEGATIVE); PH,URINE 5.5 (5.0-8.0); PROTEIN,URINE Negative (NEGATIVE)
[2021-02-17 16:05] LABS: BACTERIA,URINE Few /HPF (None Seen); MUCUS,URINE Moderate LPF (None Seen); RBC,URINE None Seen /HPF (0-1)
[2021-02-17 16:21] LABS: CREATININE,URINE RANDOM 98 mg/dL (30-135); SODIUM,URINE RANDOM < 13 mmol/l (40-220)
[2021-02-17 16:56] LABS: BF LYMPHOCYTE 34 %; BF MESOTHELIAL 32 %
[2021-02-17 16:57] LABS: APPEARANCE BODY FLUID CLEAR (CLEAR); COLOR,BODY FLUID LT YELLOW (LT YELLOW); SPECIMENTYPE,BODY FLUID ASCITES; TOTAL VOLUME,BODY FLUID 6500 mL
[2021-02-17 16:58] LABS: BODY FLUID RBC 230 /cu. mm.; BODY FLUID WBC 85 /cu. mm.
[2021-02-17] MEDS: LACTULOSE 20 GM/30 ML UDCUP PO SCH (21:21)
[2021-02-18 02:41] VITALS: BP 110/62
[2021-02-18 04:03] VITALS: BP 105/64
[2021-02-18 05:29] VITALS: BP 117/66
[2021-02-18 06:34] VITALS: BP 107/62
[2021-02-18] MEDS ORDERED: RIFAXIMIN 550 MG TABLET PO SCH (09:00)
[2021-02-18] MEDS: OCTREOTIDE ACETATE 100 MCG/ML AMP SQ SCH (09:50)
[2021-02-18] MEDS: MIDODRINE HCL 5 MG TABLET PO SCH (09:50)
[2021-02-18] MEDS: FAMOTIDINE 20MG VIAL IV SCH (09:50)
[2021-02-18] MEDS: LACTULOSE 20 GM/30 ML UDCUP PO SCH (09:50)
[2021-02-18 12:18] VITALS: BP 109/62
== END 2021-02-18 11:50 | disposition left against medical advice (07) ==
LOC: EDH 06:18 → EDHIP 06:19
PROVIDERS: ADMIT Internal Medicine; ATTEND Internal Medicine
DX: K70.31 Alcoholic cirrhosis of liver with ascites (principal); E87.5 Hyperkalemia; E87.1 Hypo-osmolality and hyponatremia; D63.8 Anemia in other chronic diseases classified elsewhere; D69.6 Thrombocytopenia, unspecified; E11.22 Type 2 diabetes mellitus with diabetic chronic kidney disease; N18.9 Chronic kidney disease, unspecified; K59.00 Constipation, unspecified; K72.90 Hepatic failure, unspecified without coma; K76.7 Hepatorenal syndrome; K76.6 Portal hypertension; Z79.899 Other long term (current) drug therapy; Z87.891 Personal history of nicotine dependence; Z91.19 Patient's noncompliance with other medical treatment and regimen
CPT/HCPCS: 36415; 49083; 74176; 80053; 81001; 82040; 82140 ×2; 82550; 82570; 82945; 83605 ×2; 83615 ×2; 83690; 83735; 83874; 83880; 84157; 84300; 84484 ×2; 85025; 85610 ×2; 85730; 87071; 87205; 89051; 96372 ×2; 96374; 96375; 96376; 99284; A4215; G0378 ×24; J0696; J2354 ×3; J3490 ×2; P9046; 96365

== ENCOUNTER 2021-02-19 02:03 | Inpatient (IN) | payer OTHER ==
[2021-02-19] VITALS (18 sets, daily range): BP systolic 98–136; BP diastolic 43–73
[~2021-02-19] VITALS: Ht 170.2 cm; Wt 68.5 kg
[2021-02-19 02:43] LABS: CREATININE 1.7 mg/dL (0.5-1.5); POTASSIUM 4.9 mmol/L (3.5-5.1)
[2021-02-19] MEDS ORDERED: LACTATED RINGERS 1000ML 1,000 ML IV ONE (02:45)
[2021-02-19 02:48] LABS: ALBUMIN 3.1 g/dL (3.5-5.0); BILIRUBIN,TOTAL 13.8 mg/dL (0.2-1.0); TOTAL PROTEIN, SERUM 5.4 g/dL (6.0-8.3)
[2021-02-19 03:15] LABS: MAGNESIUM 2.4 mg/dL (1.80-2.40)
[2021-02-19] MEDS ORDERED: PIP/TAZ ZOSYN 3.375G 3.375 GM VIAL IVPB ONE (03:45)
[2021-02-19] MEDS ORDERED: 0.9% NACL 50ML 50 ML IV.SOLN. IV ONE (03:45)
[2021-02-19 04:04] LABS: BASOPHILS % (AUTO) 0.5 % (0.0-5.0); EOSINOPHILS % (AUTO) 1.9 % (0.0-8.0); LYMPHOCYTES % (AUTO) 16.5 % (21.0-51.0); MEAN CORPUSCULAR HEMOGLOBIN 35.2 pg (27.0-33.0); MEAN CORPUSCULAR HGB CONC 34.5 g/dL (32.0-36.0); MONOCYTES % (AUTO) 18.3 % (3.0-13.0); NEUTROPHILS % (AUTO) 61.6 % (40.0-77.0); PLATELET COUNT (AUTO) 91 K/uL (130-400); RED BLOOD CELL COUNT(AUTO) 1.99 MIL/uL (4.50-6.20); RED CELL DISTRIBUTION WIDTH 14.9 % (11.0-15.5); WHITE BLOOD COUNT (AUTO) 9.4 K/uL (4.8-10.8)
[2021-02-19 04:07] LABS: HEMATOCRIT 20.3 % (42-54)
[2021-02-19] MEDS ORDERED: LACTULOSE 20 GM/30 ML UDCUP PR STA (04:07)
[2021-02-19] MEDS ORDERED: LACTULOSE 20 GM/30 ML UDCUP PO ONE (04:45)
[2021-02-19] MEDS ORDERED: ACETAMINOPHEN 325 MG TAB PO PRN (05:15)
[2021-02-19] MEDS ORDERED: ONDANSETRON 4MG INJ IV PRN (05:15)
[2021-02-19 06:02] LABS: APPEARANCE,URINE Clear (CLEAR); BILIRUBIN,URINE Moderate (NEGATIVE); COLOR,URINE Dark Yellow (YELLOW); GLUCOSE, URINE (UA) Negative (NEGATIVE); KETONES,URINE Negative (NEGATIVE); LEUKOCYTE ESTERASE ,URINE Trace (NEGATIVE); NITRATE,URINE Negative (NEGATIVE); OCCULT BLOOD,URINE Negative (NEGATIVE); PH,URINE 5.5 (5.0-8.0); PROTEIN,URINE Negative (NEGATIVE)
[2021-02-19 06:18] LABS: BACTERIA,URINE Few /HPF (None Seen); RBC,URINE 0-1 /HPF (0-1); SQUAMOUS EPITHELIAL CELL,UR 0-2 /HPF (0-2)
[2021-02-19] MEDS: MIDODRINE HCL 5 MG TABLET PO SCH ×3 (07:30→20:40)
[2021-02-19] MEDS ORDERED: MIDODRINE HCL 5 MG TABLET ONE (07:34)
[2021-02-19] MEDS: RIFAXIMIN 550 MG TABLET PO SCH ×2 (09:00→20:40)
[2021-02-19] MEDS: OCTREOTIDE ACETATE 100 MCG/ML AMP SQ SCH ×3 (09:00→20:40)
[2021-02-19] MEDS ORDERED: FAMOTIDINE 20MG TAB PO SCH (09:00)
[2021-02-19] MEDS: PANTOPRAZOLE 40 MG/VIAL IVP SCH ×2 (09:00→20:40)
[2021-02-19] MEDS: LACTULOSE 20 GM/30 ML UDCUP PO SCH ×4 (09:00→22:43)
[2021-02-19] MEDS: ALBUMIN (HUMAN) 25% 50 ML IV SCH ×2 (09:15→17:15)
[2021-02-19 10:32] LABS: HEMATOCRIT 19.1 % (42-54)
[2021-02-19 10:35] LABS: CREATININE 1.4 mg/dL (0.5-1.5); POTASSIUM 5.4 mmol/L (3.5-5.1)
[2021-02-19] MEDS ORDERED: PHARMACY COMMUNICATION MISC SCH (11:45)
[2021-02-19] MEDS: NA ZIRCON CYCLOSIL(LOKELMA 10GM) PO NR (12:00)
[2021-02-19 12:27] LABS: HEMATOCRIT 22.2 % (42-54)
[2021-02-19] MEDS: ZOSYN 3.375GM+NS 50ML 50 ML IV SCH ×2 (13:00→20:40)
[2021-02-19] MEDS ORDERED: 0.9% NACL 50ML 50 ML IV ONE (13:56)
[2021-02-19 15:14] LABS: HEMATOCRIT 23.1 % (42-54); MEAN CORPUSCULAR HEMOGLOBIN 33.2 pg (27.0-33.0); MEAN CORPUSCULAR HGB CONC 34.2 g/dL (32.0-36.0); MEAN CORPUSCULAR VOLUME 97.1 fL (79-99); PLATELET COUNT (AUTO) 52 K/uL (130-400); RED BLOOD CELL COUNT(AUTO) 2.38 MIL/uL (4.50-6.20); RED CELL DISTRIBUTION WIDTH 18.4 % (11.0-15.5); WHITE BLOOD COUNT (AUTO) 5.9 K/uL (4.8-10.8)
[2021-02-19 17:03] LABS: BAND NEUTROPHILS % (MANUAL) 1 % (0-2); EOSINOPHILS % (MANUAL) 2 % (1-6); LYMPHOCYTES % (MANUAL) 11 % (22-44); MONOCYTES % (MANUAL) 14 % (2-9); SEGMENTED NEUTROPHILS % 72 % (40-70)
[2021-02-19 17:05] LABS: MAN.DIFF COMMENT-IMPRESSION MANUAL DIFFERENTIAL
[2021-02-19 17:06] LABS: PLATELET MORPHOLOGY COMMENT MARKED DECREASE
[2021-02-19 18:02] LABS: HEMATOCRIT 22.8 % (42-54)
[2021-02-20] VITALS (16 sets, daily range): BP systolic 100–121; BP diastolic 48–80
[2021-02-20 00:53] LABS: HEMATOCRIT 21.9 % (42-54)
[2021-02-20] MEDS ORDERED: ALBUMIN (HUMAN) 25% 0 ML IV ONE (01:19)
[2021-02-20] MEDS: ALBUMIN (HUMAN) 25% 50 ML IV SCH ×2 (01:58→09:15)
[2021-02-20 04:06] LABS: BASOPHILS % (AUTO) 0.4 % (0.0-5.0); EOSINOPHILS % (AUTO) 2.9 % (0.0-8.0); HEMATOCRIT 21.4 % (42-54); LYMPHOCYTES % (AUTO) 13.7 % (21.0-51.0); MEAN CORPUSCULAR HGB CONC 34.6 g/dL (32.0-36.0); MEAN CORPUSCULAR VOLUME 95.5 fL (79-99); MONOCYTES % (AUTO) 15.8 % (3.0-13.0); NEUTROPHILS % (AUTO) 66.8 % (40.0-77.0); PLATELET COUNT (AUTO) 49 K/uL (130-400); RED BLOOD CELL COUNT(AUTO) 2.24 MIL/uL (4.50-6.20); RED CELL DISTRIBUTION WIDTH 19.4 % (11.0-15.5); WHITE BLOOD COUNT (AUTO) 4.8 K/uL (4.8-10.8)
[2021-02-20 04:23] LABS: ALBUMIN 2.7 g/dL (3.5-5.0); BILIRUBIN,TOTAL 11.8 mg/dL (0.2-1.0); CREATININE 1.3 mg/dL (0.5-1.5); POTASSIUM 4.6 mmol/L (3.5-5.1); TOTAL PROTEIN, SERUM 4.4 g/dL (6.0-8.3)
[2021-02-20 04:53] LABS: B-TYPE NATRIURETIC PEPTIDE 146 pg/mL (0-100)
[2021-02-20] MEDS ORDERED: 0.9% NACL 50ML 50 ML IV ONE (05:35)
[2021-02-20] MEDS: ZOSYN 3.375GM+NS 50ML 50 ML IV SCH ×3 (05:57→21:03)
[2021-02-20] MEDS: LACTULOSE 20 GM/30 ML UDCUP PO SCH ×4 (05:58→23:33)
[2021-02-20] MEDS: OCTREOTIDE ACETATE 100 MCG/ML AMP SQ SCH ×3 (09:00→21:00)
[2021-02-20] MEDS: PANTOPRAZOLE 40 MG/VIAL IVP SCH ×2 (09:00→21:03)
[2021-02-20] MEDS: MIDODRINE HCL 5 MG TABLET PO SCH ×3 (09:00→21:02)
[2021-02-20] MEDS: RIFAXIMIN 550 MG TABLET PO SCH ×2 (09:00→21:02)
[2021-02-20] MEDS: NA ZIRCON CYCLOSIL(LOKELMA 10GM) PO NR (12:12)
[2021-02-20] MEDS: METOCLOPRAMIDE 10 MG/2 ML VIAL IVP SCH (21:02)
[2021-02-20] MEDS ORDERED: ALBUMIN (HUMAN) 25% 50 ML IV SCH (22:00)
[2021-02-21] VITALS (15 sets, daily range): BP systolic 93–105; BP diastolic 32–73
[2021-02-21 03:46] LABS: HEMATOCRIT 22.6 % (42-54); MEAN CORPUSCULAR HEMOGLOBIN 33.6 pg (27.0-33.0); MEAN CORPUSCULAR HGB CONC 34.5 g/dL (32.0-36.0); MEAN CORPUSCULAR VOLUME 97.4 fL (79-99); RED BLOOD CELL COUNT(AUTO) 2.32 MIL/uL (4.50-6.20); RED CELL DISTRIBUTION WIDTH 19.6 % (11.0-15.5); WHITE BLOOD COUNT (AUTO) 6.1 K/uL (4.8-10.8)
[2021-02-21 03:58] LABS: CREATININE 1.3 mg/dL (0.5-1.5); POTASSIUM 4.2 mmol/L (3.5-5.1)
[2021-02-21] MEDS: ZOSYN 3.375GM+NS 50ML 50 ML IV SCH (05:04)
[2021-02-21] MEDS: LACTULOSE 20 GM/30 ML UDCUP PO SCH (05:04)
[2021-02-21] MEDS ORDERED: LIDOCAINE HCL 1% 20 ML VIAL ONE (07:03)
[2021-02-21] MEDS ORDERED: PROPOFOL 10 MG/ML 20ML VIAL IV ONE ×2 (07:03)
[2021-02-21] MEDS ORDERED: PANT40TA PO (08:54)
[2021-02-21] MEDS: OCTREOTIDE ACETATE 100 MCG/ML AMP SQ SCH (09:00)
[2021-02-21] MEDS: RIFAXIMIN 550 MG TABLET PO SCH (09:25)
[2021-02-21] MEDS: METOCLOPRAMIDE 10 MG/2 ML VIAL IVP SCH (09:28)
[2021-02-21] MEDS: PANTOPRAZOLE 40 MG/VIAL IVP SCH (09:28)
[2021-02-21] MEDS: MIDODRINE HCL 5 MG TABLET PO SCH (09:31)
== END 2021-02-21 11:40 | disposition home or self-care (01) | DRG 871 ==
LOC: EDH 02:03 → EDHIP 02:04 → 2DH 23:11 → 4DH 02-20 17:22
PROVIDERS: ADMIT Internal Medicine; ATTEND Internal Medicine
PROC: 30233N1 Transfusion of Nonautologous Red Blood Cells into Peripheral Vein, Percutaneous Approach (ICD-10-PCS; 2021-02-19)
PROC: 06L38CZ Occlusion of Esophageal Vein with Extraluminal Device, Via Natural or Artificial Opening Endoscopic (ICD-10-PCS; principal; 2021-02-21)
DX: A41.9 Sepsis, unspecified organism (principal); I85.11 Secondary esophageal varices with bleeding; E87.1 Hypo-osmolality and hyponatremia; E87.2 Acidosis; N17.9 Acute kidney failure, unspecified; K76.6 Portal hypertension; K70.40 Alcoholic hepatic failure without coma; K70.31 Alcoholic cirrhosis of liver with ascites; I86.4 Gastric varices; E87.5 Hyperkalemia; I95.89 Other hypotension; N18.9 Chronic kidney disease, unspecified; E87.8 Other disorders of electrolyte and fluid balance, not elsewhere classified; E11.22 Type 2 diabetes mellitus with diabetic chronic kidney disease; D63.1 Anemia in chronic kidney disease; D63.8 Anemia in other chronic diseases classified elsewhere; E86.0 Dehydration; R16.1 Splenomegaly, not elsewhere classified; D69.6 Thrombocytopenia, unspecified; K80.20 Calculus of gallbladder without cholecystitis without obstruction; Z87.891 Personal history of nicotine dependence; Z83.3 Family history of diabetes mellitus
CPT/HCPCS: 36415; 43235; 43244; 71045; 80048; 80053; 81001; 82140; 82270; 82948; 83605; 83735; 83880; 85014; 85018; 85025; 85027; 86140; 86701; 86850; 86900; 86901; 86923; 87040; 87088; 87390; 93005; A4606; C9113; G0378; J2354; J2543; J2704; J2765; J7030; P9016; P9046; P9047

== ENCOUNTER 2021-02-23 19:26 | Inpatient (IN) | payer OTHER ==
[~2021-02-23] VITALS: Ht 170.2 cm; Wt 66.7 kg
[~2021-02-23 19:26] MED LIST changes: +PANT40TA PO
[2021-02-23 20:10] VITALS: BP 111/54
[2021-02-23 20:28] LABS: BASOPHILS % (AUTO) 0.4 % (0.0-5.0); EOSINOPHILS % (AUTO) 2.2 % (0.0-8.0); HEMATOCRIT 23.6 % (42-54); LYMPHOCYTES % (AUTO) 11.6 % (21.0-51.0); MEAN CORPUSCULAR HEMOGLOBIN 33.5 pg (27.0-33.0); MEAN CORPUSCULAR HGB CONC 34.3 g/dL (32.0-36.0); MEAN CORPUSCULAR VOLUME 97.5 fL (79-99); MONOCYTES % (AUTO) 13.4 % (3.0-13.0); NEUTROPHILS % (AUTO) 71.5 % (40.0-77.0); PLATELET COUNT (AUTO) 53 K/uL (130-400); RED BLOOD CELL COUNT(AUTO) 2.42 MIL/uL (4.50-6.20); RED CELL DISTRIBUTION WIDTH 19.1 % (11.0-15.5); WHITE BLOOD COUNT (AUTO) 5.5 K/uL (4.8-10.8)
[2021-02-23 20:37] LABS: CARBON DIOXIDE 24 mmol/L (21-32); CHLORIDE 97 mmol/L (101-111); GLOMERULAR FILTR. RATE CALC 39 mL/min (>60); GLUCOSE,RANDOM 131 mg/dL (70-105); POTASSIUM 4.5 mmol/L (3.5-5.1); SODIUM SERUM 129 mmol/L (136-145); UREA NITROGEN, BLOOD 49 mg/dL (7-18)
[2021-02-23 20:41] LABS: ALANINE AMINOTRANSFERASE 39 U/L (12-78); ALBUMIN 2.8 g/dL (3.5-5.0); ALCOHOL, BLOOD < 3 mg/dL (0-10); ASPARTATE AMINOTRANSFERASE 51 U/L (10-37); BILIRUBIN,TOTAL 8.3 mg/dL (0.2-1.0); CREATINE KINASE, TOTAL 55 U/L (21-232); LIPASE 282 U/L (114-286); TOTAL PROTEIN, SERUM 5.1 g/dL (6.0-8.3)
[2021-02-23 20:43] LABS: AMMONIA 106 umol/L (11-32)
[2021-02-23 20:47] LABS: INR 1.65 (0.85-1.15); PROTHROMBIN TIME 17.2 SEC (9.6-11.6)
[2021-02-23 20:48] LABS: PARTIAL THROMBOPLASTIN TIME 41.1 SEC (26.3-35.5)
[2021-02-23 20:55] LABS: APPEARANCE,URINE Clear (CLEAR); BILIRUBIN,URINE Small (NEGATIVE); COLOR,URINE Dark Yellow (YELLOW); GLUCOSE, URINE (UA) Negative (NEGATIVE); KETONES,URINE Trace mg/dL (NEGATIVE); LEUKOCYTE ESTERASE ,URINE Trace (NEGATIVE); NITRATE,URINE Positive (NEGATIVE); OCCULT BLOOD,URINE Negative (NEGATIVE); PH,URINE 5.5 (5.0-8.0); PROTEIN,URINE Trace mg/dL (NEGATIVE)
[2021-02-23 21:07] LABS: RBC,URINE 0-1 /HPF (0-1)
[2021-02-23 21:08] LABS: BACTERIA,URINE Few /HPF (None Seen)
[2021-02-23 21:10] LABS: MUCUS,URINE Few LPF (None Seen); SQUAMOUS EPITHELIAL CELL,UR Rare /HPF (0-2); TRANSITIONAL EPI CELLS,URINE Few /HPF (None Seen)
[2021-02-23] MEDS ORDERED: ACETAMINOPHEN 325 MG TAB PO PRN ×2 (22:45)
[2021-02-23] MEDS ORDERED: ONDANSETRON 4MG INJ IV PRN (22:45)
[2021-02-23] MEDS: PIP/TAZ ZOSYN 3.375G 3.375 GM VIAL IVPB SCH (23:11)
[2021-02-23] MEDS: LACTULOSE 20 GM/30 ML UDCUP PO SCH (23:11)
[2021-02-23] MEDS: 0.9%NACL 50ML IV SCH (23:11)
[2021-02-24 08:05] LABS: BASOPHILS % (AUTO) 0.6 % (0.0-5.0); EOSINOPHILS % (AUTO) 1.7 % (0.0-8.0); HEMATOCRIT 23.8 % (42-54); LYMPHOCYTES % (AUTO) 16.5 % (21.0-51.0); MEAN CORPUSCULAR HEMOGLOBIN 33.6 pg (27.0-33.0); MEAN CORPUSCULAR VOLUME 98.8 fL (79-99); NEUTROPHILS % (AUTO) 66.4 % (40.0-77.0); PLATELET COUNT (AUTO) 42 K/uL (130-400); RED BLOOD CELL COUNT(AUTO) 2.41 MIL/uL (4.50-6.20); RED CELL DISTRIBUTION WIDTH 19.4 % (11.0-15.5); WHITE BLOOD COUNT (AUTO) 4.7 K/uL (4.8-10.8)
[2021-02-24] MEDS ORDERED: ALBUMIN (HUMAN) 25% 200 ML IV ONE (08:09)
[2021-02-24 08:19] LABS: INR 1.55 (0.85-1.15); PROTHROMBIN TIME 16.2 SEC (9.6-11.6)
[2021-02-24 08:22] LABS: CRP QUANTITATIVE 6.6 mg/L (0.00-9.0)
[2021-02-24 09:13] LABS: PARTIAL THROMBOPLASTIN TIME 35.3 SEC (26.3-35.5)
[2021-02-24] MEDS ORDERED: ZOSYN 3.375GM+NS 50ML 50 ML IV ONE (10:12)
[2021-02-24] MEDS: PIP/TAZ ZOSYN 3.375G 3.375 GM VIAL IVPB SCH (10:30)
[2021-02-24] MEDS: 0.9%NACL 50ML IV SCH ×2 (10:30→14:33)
[2021-02-24] MEDS: LACTULOSE 20 GM/30 ML UDCUP PO SCH ×4 (10:35→22:19)
[2021-02-24] MEDS: PANTOPRAZOLE 40 MG/VIAL IVP SCH ×2 (10:35→19:33)
[2021-02-24] MEDS: MIDODRINE HCL 5 MG TABLET PO SCH ×3 (10:37→19:33)
[2021-02-24] MEDS: RIFAXIMIN 550 MG TABLET PO SCH ×2 (10:37→22:19)
[2021-02-24 10:38] VITALS: BP 108/54
[2021-02-24 12:55] VITALS: BP 115/64
[2021-02-24] MEDS: ALBUMIN (HUMAN) 25% 50 ML IV SCH ×2 (15:00→19:32)
[2021-02-24 16:00] VITALS: BP 91/44
[2021-02-24 16:28] LABS: APPEARANCE BODY FLUID CLEAR (CLEAR); BODY FLUID WBC 40 /cu. mm.; COLOR,BODY FLUID YELLOW (LT YELLOW); SPECIMENTYPE,BODY FLUID ASCITES; TOTAL VOLUME,BODY FLUID 1300 mL
[2021-02-24 16:29] LABS: BODY FLUID RBC 92 /cu. mm.
[2021-02-24 16:34] LABS: BF LYMPHOCYTE 37 %; BF MONOCYTE 1 %; BF OTHER CELLS 5
[2021-02-24 20:10] VITALS: BP 92/49
[2021-02-24] MEDS ORDERED: ZOSYN 3.375GM+NS 50ML 50 ML IV SCH (22:45)
[2021-02-24 23:31] VITALS: BP 94/51
[2021-02-25] VITALS (10 sets, daily range): BP systolic 93–108; BP diastolic 48–56
[2021-02-25] MEDS: LACTULOSE 20 GM/30 ML UDCUP PO SCH ×4 (05:23→21:35)
[2021-02-25 05:37] LABS: BASOPHILS % (AUTO) 0.3 % (0.0-5.0); EOSINOPHILS % (AUTO) 1.8 % (0.0-8.0); LYMPHOCYTES % (AUTO) 16.5 % (21.0-51.0); MEAN CORPUSCULAR HEMOGLOBIN 33.2 pg (27.0-33.0); MEAN CORPUSCULAR HGB CONC 34.4 g/dL (32.0-36.0); MEAN CORPUSCULAR VOLUME 96.5 fL (79-99); MONOCYTES % (AUTO) 17.1 % (3.0-13.0); NEUTROPHILS % (AUTO) 63.7 % (40.0-77.0); PLATELET COUNT (AUTO) 37 K/uL (130-400); RED BLOOD CELL COUNT(AUTO) 2.02 MIL/uL (4.50-6.20); RED CELL DISTRIBUTION WIDTH 19.1 % (11.0-15.5); WHITE BLOOD COUNT (AUTO) 3.3 K/uL (4.8-10.8)
[2021-02-25 05:54] LABS: HEMATOCRIT 19.5 % (42-54)
[2021-02-25 06:01] LABS: ALBUMIN 2.9 g/dL (3.5-5.0); BILIRUBIN,TOTAL 7.8 mg/dL (0.2-1.0); CREATININE 1.8 mg/dL (0.5-1.5); PHOSPHORUS 4.5 mg/dL (2.5-4.9); POTASSIUM 4.3 mmol/L (3.5-5.1); TOTAL PROTEIN, SERUM 4.7 g/dL (6.0-8.3)
[2021-02-25] MEDS: PANTOPRAZOLE 40 MG/VIAL IVP SCH ×2 (07:58→20:27)
[2021-02-25] MEDS: MIDODRINE HCL 5 MG TABLET PO SCH ×3 (07:58→20:27)
[2021-02-25] MEDS: RIFAXIMIN 550 MG TABLET PO SCH ×2 (07:58→20:27)
[2021-02-25] MEDS: ALBUMIN (HUMAN) 25% 50 ML IV SCH ×3 (07:58→20:32)
[2021-02-25 09:37] LABS: HEMATOCRIT 21.1 % (42-54)
[2021-02-25] MEDS: CEFTRIAXONE 1G VIAL IVP SCH (09:38)
[2021-02-25 14:56] LABS: HEMATOCRIT 23.1 % (42-54); MEAN CORPUSCULAR HGB CONC 34.2 g/dL (32.0-36.0); MEAN CORPUSCULAR VOLUME 93.5 fL (79-99); PLATELET COUNT (AUTO) 39 K/uL (130-400); RED BLOOD CELL COUNT(AUTO) 2.47 MIL/uL (4.50-6.20); RED CELL DISTRIBUTION WIDTH 20.7 % (11.0-15.5); WHITE BLOOD COUNT (AUTO) 4.1 K/uL (4.8-10.8)
[2021-02-25 15:22] LABS: BAND NEUTROPHILS % (MANUAL) 4 % (0-2); EOSINOPHILS % (MANUAL) 1 % (1-6); LYMPHOCYTES % (MANUAL) 18 % (22-44); MONOCYTES % (MANUAL) 18 % (2-9); REACTIVE LYMPHOCYTES 2 % (0-0); SEGMENTED NEUTROPHILS % 57 % (40-70)
[2021-02-25 15:24] LABS: MAN.DIFF COMMENT-IMPRESSION MANUAL DIFFERENTIAL; PLATELET MORPHOLOGY COMMENT MARKED DECREASE
[2021-02-26 03:54] LABS: HEMATOCRIT 22.8 % (42-54); MEAN CORPUSCULAR HEMOGLOBIN 32.6 pg (27.0-33.0); MEAN CORPUSCULAR HGB CONC 34.6 g/dL (32.0-36.0); MEAN CORPUSCULAR VOLUME 94.2 fL (79-99); PLATELET COUNT (AUTO) 33 K/uL (130-400); RED BLOOD CELL COUNT(AUTO) 2.42 MIL/uL (4.50-6.20); RED CELL DISTRIBUTION WIDTH 21.2 % (11.0-15.5); WHITE BLOOD COUNT (AUTO) 3.9 K/uL (4.8-10.8)
[2021-02-26 04:13] LABS: CREATININE 1.8 mg/dL (0.5-1.5); MAGNESIUM 2.5 mg/dL (1.80-2.40); PHOSPHORUS 4.4 mg/dL (2.5-4.9); POTASSIUM 4.1 mmol/L (3.5-5.1)
[2021-02-26] MEDS: LACTULOSE 20 GM/30 ML UDCUP PO SCH ×2 (04:49→13:27)
[2021-02-26 04:53] VITALS: BP 102/53
[2021-02-26 05:21] LABS: BAND NEUTROPHILS % (MANUAL) 1 % (0-2); EOSINOPHILS % (MANUAL) 1 % (1-6); LYMPHOCYTES % (MANUAL) 12 % (22-44); MONOCYTES % (MANUAL) 8 % (2-9); SEGMENTED NEUTROPHILS % 78 % (40-70)
[2021-02-26 05:22] LABS: MAN.DIFF COMMENT-IMPRESSION MANUAL DIFFERENTIAL; PLATELET MORPHOLOGY COMMENT MARKED DECREASE
[2021-02-26 07:44] VITALS: BP 100/48
[2021-02-26] MEDS: ALBUMIN (HUMAN) 25% 50 ML IV SCH (08:33)
[2021-02-26] MEDS: PANTOPRAZOLE 40 MG/VIAL IVP SCH (08:33)
[2021-02-26] MEDS: MIDODRINE HCL 5 MG TABLET PO SCH (08:34)
[2021-02-26] MEDS: CEFTRIAXONE 1G VIAL IVP SCH (08:34)
[2021-02-26] MEDS: RIFAXIMIN 550 MG TABLET PO SCH (08:34)
[2021-02-26 11:24] VITALS: BP 93/56
[2021-02-26] MEDS ORDERED: FURO20TA4 PO (14:16)
[2021-02-26] MEDS ORDERED: SPIR25TA6 PO (14:16)
[2021-02-26] MEDS ORDERED: LACT10SO9 PO (14:30)
== END 2021-02-26 17:00 | disposition home or self-care (01) | DRG 432 ==
LOC: EDH 19:26 → UNDOADMIN 19:27 → EDHIP 19:27 → 4AH 02-24 13:05
PROVIDERS: ADMIT Internal Medicine; ATTEND Internal Medicine
PROC: 0W9G3ZZ Drainage of Peritoneal Cavity, Percutaneous Approach (ICD-10-PCS; 2021-02-24)
PROC: 30233N1 Transfusion of Nonautologous Red Blood Cells into Peripheral Vein, Percutaneous Approach (ICD-10-PCS; principal; 2021-02-25)
DX: K70.31 Alcoholic cirrhosis of liver with ascites (principal); K76.7 Hepatorenal syndrome; E87.1 Hypo-osmolality and hyponatremia; K92.2 Gastrointestinal hemorrhage, unspecified; N17.9 Acute kidney failure, unspecified; N39.0 Urinary tract infection, site not specified; K72.90 Hepatic failure, unspecified without coma; D63.1 Anemia in chronic kidney disease; D69.6 Thrombocytopenia, unspecified; E11.22 Type 2 diabetes mellitus with diabetic chronic kidney disease; F10.10 Alcohol abuse, uncomplicated; K59.00 Constipation, unspecified; N18.9 Chronic kidney disease, unspecified; Z87.891 Personal history of nicotine dependence
CPT/HCPCS: 36415; 36430; 49083; 80048; 80053; 81001; 82140; 82270; 82550; 82570; 83605; 83690; 83735; 83935; 84100; 84145; 84300; 84484; 85014; 85018; 85025; 85610; 85651; 85730; 86140; 86850; 86900; 86901; 86923; 87071; 87088; 87205; 89051; 93005; 96365; C9113; G0378; J0696; J2405; J2543; P9016; P9046; P9047

== ENCOUNTER 2021-03-01 22:55 | Emergency (ER) | payer OTHER ==
[~2021-03-01] VITALS: Ht 167.6 cm; Wt 65.8 kg
[~2021-03-01 22:55] MED LIST changes: +FURO20TA4 PO; +LACT10SO9 PO; +SPIR25TA6 PO
[2021-03-01 23:32] VITALS: BP 123/67
[2021-03-01 23:45] LABS: POTASSIUM 4.2 mmol/L (3.5-5.1)
[2021-03-01 23:50] LABS: ALBUMIN 3.1 g/dL (3.5-5.0); BILIRUBIN,TOTAL 6.6 mg/dL (0.2-1.0); TOTAL PROTEIN, SERUM 5.4 g/dL (6.0-8.3)
[2021-03-01 23:52] LABS: INR 1.81 (0.85-1.15); PROTHROMBIN TIME 18.7 SEC (9.6-11.6)
[2021-03-01 23:55] LABS: BASOPHILS % (AUTO) 0.7 % (0.0-5.0); EOSINOPHILS % (AUTO) 3.8 % (0.0-8.0); HEMATOCRIT 24.8 % (42-54); LYMPHOCYTES % (AUTO) 14.1 % (21.0-51.0); MEAN CORPUSCULAR HEMOGLOBIN 31.9 pg (27.0-33.0); MEAN CORPUSCULAR HGB CONC 33.1 g/dL (32.0-36.0); MEAN CORPUSCULAR VOLUME 96.5 fL (79-99); MONOCYTES % (AUTO) 18.8 % (3.0-13.0); NEUTROPHILS % (AUTO) 61.3 % (40.0-77.0); PLATELET COUNT (AUTO) 51 K/uL (130-400); RED BLOOD CELL COUNT(AUTO) 2.57 MIL/uL (4.50-6.20); RED CELL DISTRIBUTION WIDTH 21.1 % (11.0-15.5); WHITE BLOOD COUNT (AUTO) 5.5 K/uL (4.8-10.8)
[2021-03-02 00:29] VITALS: BP 104/58
== END 2021-03-02 01:07 | disposition home or self-care (01) ==
LOC: EDH 22:55
DX: K70.31 Alcoholic cirrhosis of liver with ascites (principal); F17.200 Nicotine dependence, unspecified, uncomplicated; Z79.899 Other long term (current) drug therapy
CPT/HCPCS: 36415; 80053; 85025; 85610

== ENCOUNTER 2021-03-02 08:13 | Emergency (ER) | payer MEDICAID, OTHER ==
[~2021-03-02] VITALS: Ht 170.2 cm; Wt 68.0 kg
[2021-03-02 08:21] VITALS: BP 111/76
[2021-03-02 09:40] VITALS: BP 124/66
[2021-03-02 09:45] LABS: HEMATOCRIT 27.1 % (42-54); MEAN CORPUSCULAR HEMOGLOBIN 32.3 pg (27.0-33.0); MEAN CORPUSCULAR HGB CONC 33.2 g/dL (32.0-36.0); MEAN CORPUSCULAR VOLUME 97.1 fL (79-99); RED BLOOD CELL COUNT(AUTO) 2.79 MIL/uL (4.50-6.20); WHITE BLOOD COUNT (AUTO) 5.4 K/uL (4.8-10.8)
[2021-03-02 09:53] LABS: CREATININE 2.2 mg/dL (0.5-1.5); POTASSIUM 4.2 mmol/L (3.5-5.1)
[2021-03-02 09:58] LABS: ALBUMIN 3.3 g/dL (3.5-5.0); BILIRUBIN,TOTAL 10.3 mg/dL (0.2-1.0); TOTAL PROTEIN, SERUM 5.7 g/dL (6.0-8.3)
[2021-03-02 10:43] LABS: INR 1.54 (0.85-1.15); PROTHROMBIN TIME 16.1 SEC (9.6-11.6)
[2021-03-02 11:20] VITALS: BP 121/69
[2021-03-02 13:10] VITALS: BP 126/72
== END 2021-03-02 13:47 | disposition left against medical advice (07) ==
LOC: EDH 08:13
DX: K70.31 Alcoholic cirrhosis of liver with ascites (principal); K76.7 Hepatorenal syndrome; F10.20 Alcohol dependence, uncomplicated; F17.200 Nicotine dependence, unspecified, uncomplicated; Z79.899 Other long term (current) drug therapy
CPT/HCPCS: 36415; 80053; 82140; 83605; 85027; 85610

== ENCOUNTER 2021-03-04 06:55 | Emergency (ER) | payer MEDICAID, OTHER ==
[~2021-03-04] VITALS: Ht 170.2 cm; Wt 66.7 kg
[2021-03-04 06:56] VITALS: BP 108/69
[2021-03-04 08:19] VITALS: BP 108/66
[2021-03-04] MEDS ORDERED: ALBUMIN (HUMAN) 25% 200 ML IV SCH (08:30)
[2021-03-04] MEDS ORDERED: ALBUMIN (HUMAN) 25% 100 ML IV PRN (12:00)
[2021-03-04 12:46] VITALS: BP 107/50
[2021-03-04 13:14] LABS: APPEARANCE BODY FLUID CLEAR (CLEAR); COLOR,BODY FLUID YELLOW (LT YELLOW); SPECIMENTYPE,BODY FLUID ASCITES; TOTAL VOLUME,BODY FLUID 12500 mL
[2021-03-04 13:15] LABS: BODY FLUID RBC 52 /cu. mm.; BODY FLUID WBC 65 /cu. mm.
[2021-03-04 13:36] LABS: BF LYMPHOCYTE 19 %; BF MESOTHELIAL 31 %; BF MONOCYTE 27 %; BF OTHER CELLS 4
== END 2021-03-04 13:28 | disposition home or self-care (01) ==
LOC: EDH 06:55
DX: K70.31 Alcoholic cirrhosis of liver with ascites (principal); F10.20 Alcohol dependence, uncomplicated; F17.200 Nicotine dependence, unspecified, uncomplicated; Z79.899 Other long term (current) drug therapy
CPT/HCPCS: 49083; 87071; 87205; 89051; 96365; C1729; P9046

== ENCOUNTER 2021-03-09 07:22 | Emergency (ER) | payer MEDICAID, OTHER ==
[~2021-03-09] VITALS: Ht 170.2 cm; Wt 68.0 kg
[2021-03-09 07:25] VITALS: BP 109/74
[2021-03-09 07:50] LABS: BASOPHILS % (AUTO) 0.6 % (0.0-5.0); EOSINOPHILS % (AUTO) 1.7 % (0.0-8.0); HEMATOCRIT 25.1 % (42-54); LYMPHOCYTES % (AUTO) 14.2 % (21.0-51.0); MEAN CORPUSCULAR HEMOGLOBIN 32.8 pg (27.0-33.0); MEAN CORPUSCULAR HGB CONC 33.5 g/dL (32.0-36.0); MONOCYTES % (AUTO) 11.2 % (3.0-13.0); NEUTROPHILS % (AUTO) 71.8 % (40.0-77.0); PLATELET COUNT (AUTO) 73 K/uL (130-400); RED BLOOD CELL COUNT(AUTO) 2.56 MIL/uL (4.50-6.20); RED CELL DISTRIBUTION WIDTH 21.2 % (11.0-15.5); WHITE BLOOD COUNT (AUTO) 6.4 K/uL (4.8-10.8)
[2021-03-09 08:28] LABS: INR 1.5 (0.85-1.15); PROTHROMBIN TIME 15.8 SEC (9.6-11.6)
[2021-03-09] MEDS ORDERED: PHYTONADIONE 10 MG/1 ML AMP SQ SCH (09:00)
[2021-03-09 09:06] LABS: ALBUMIN 3.1 g/dL (3.5-5.0); BILIRUBIN,TOTAL 6.2 mg/dL (0.2-1.0); CREATININE 2.1 mg/dL (0.5-1.5); TOTAL PROTEIN, SERUM 5.9 g/dL (6.0-8.3)
[2021-03-09 10:06] VITALS: BP 112/62
[2021-03-09 11:08] VITALS: BP 119/58
[2021-03-09 12:22] VITALS: BP 119/58
[2021-03-09 13:19] LABS: APPEARANCE,URINE Clear (CLEAR); BILIRUBIN,URINE Small (NEGATIVE); COLOR,URINE Dark Yellow (YELLOW); GLUCOSE, URINE (UA) Negative (NEGATIVE); KETONES,URINE Trace mg/dL (NEGATIVE); LEUKOCYTE ESTERASE ,URINE Negative (NEGATIVE); NITRATE,URINE Negative (NEGATIVE); OCCULT BLOOD,URINE Negative (NEGATIVE); PROTEIN,URINE Trace mg/dL (NEGATIVE)
[2021-03-09] MEDS ORDERED: ALBUMIN (HUMAN) 25% 200 ML IV ONE (13:49)
[2021-03-09 14:16] LABS: BACTERIA,URINE Rare /HPF (None Seen); MUCUS,URINE Few LPF (None Seen); RBC,URINE 0-1 /HPF (0-1); SQUAMOUS EPITHELIAL CELL,UR Rare /HPF (0-2)
[2021-03-09 16:21] VITALS: BP 101/45
== END 2021-03-09 16:39 | disposition home or self-care (01) ==
LOC: EDH 07:22
DX: R18.8 Other ascites (principal); K74.60 Unspecified cirrhosis of liver; D63.1 Anemia in chronic kidney disease; N18.9 Chronic kidney disease, unspecified; K64.4 Residual hemorrhoidal skin tags; F17.200 Nicotine dependence, unspecified, uncomplicated; Z79.899 Other long term (current) drug therapy
CPT/HCPCS: 36415; 49083; 80053; 81001; 82140; 82150; 83690; 85025; 85610; 93005; 96365; 96372; C1729; J3430; P9046

== ENCOUNTER 2021-03-16 06:28 | Inpatient (IN) | payer OTHER ==
[~2021-03-16] VITALS: Ht 170.2 cm; Wt 65.1 kg
[2021-03-16 06:31] VITALS: BP 122/58
[2021-03-16 06:50] LABS: BASOPHILS % (AUTO) 0.1 % (0.0-5.0); EOSINOPHILS % (AUTO) 0.5 % (0.0-8.0); HEMATOCRIT 21.9 % (42-54); LYMPHOCYTES % (AUTO) 8.4 % (21.0-51.0); MEAN CORPUSCULAR HGB CONC 32.9 g/dL (32.0-36.0); MEAN CORPUSCULAR VOLUME 100.5 fL (79-99); NEUTROPHILS % (AUTO) 76.9 % (40.0-77.0); PLATELET COUNT (AUTO) 58 K/uL (130-400); RED BLOOD CELL COUNT(AUTO) 2.18 MIL/uL (4.50-6.20); RED CELL DISTRIBUTION WIDTH 21.2 % (11.0-15.5); WHITE BLOOD COUNT (AUTO) 8.8 K/uL (4.8-10.8)
[2021-03-16 07:08] LABS: INR 1.64 (0.85-1.15); PROTHROMBIN TIME 17.1 SEC (9.6-11.6)
[2021-03-16 07:09] LABS: PARTIAL THROMBOPLASTIN TIME 46.1 SEC (26.3-35.5); PLATELET MORPHOLOGY COMMENT DECREASED
[2021-03-16 07:10] LABS: B-TYPE NATRIURETIC PEPTIDE 28 pg/mL (0-100)
[2021-03-16 07:13] LABS: ALBUMIN 2.7 g/dL (3.5-5.0); BILIRUBIN,TOTAL 5.7 mg/dL (0.2-1.0); CREATININE 2.6 mg/dL (0.5-1.5); POTASSIUM 4.5 mmol/L (3.5-5.1); TOTAL PROTEIN, SERUM 5.2 g/dL (6.0-8.3)
[2021-03-16] MEDS ORDERED: SPIRONOLACTONE 25 MG TAB PO SCH (09:39)
[2021-03-16] MEDS: RIFAXIMIN 550 MG TABLET PO SCH ×2 (09:39→20:27)
[2021-03-16] MEDS ORDERED: FUROSEMIDE 20 MG TABLET PO SCH (09:39)
[2021-03-16] MEDS: PANTOPRAZOLE 40 MG TAB DR PO SCH ×2 (09:40→14:59)
[2021-03-16] MEDS: MIDODRINE HCL 5 MG TABLET PO SCH ×3 (09:48→20:27)
[2021-03-16] MEDS ORDERED: LACTULOSE 20 GM/30 ML UDCUP PO PRN (10:00)
[2021-03-16] MEDS ORDERED: PHYTONADIONE 10 MG/1 ML AMP SQ SCH (10:00)
[2021-03-16] MEDS: CEFTRIAXONE 1G VIAL IVP SCH (10:00)
[2021-03-16 11:06] LABS: APPEARANCE,URINE Clear (CLEAR); BILIRUBIN,URINE Small (NEGATIVE); COLOR,URINE Dark Yellow (YELLOW); GLUCOSE, URINE (UA) Negative (NEGATIVE); KETONES,URINE Negative (NEGATIVE); LEUKOCYTE ESTERASE ,URINE Negative (NEGATIVE); NITRATE,URINE Negative (NEGATIVE); OCCULT BLOOD,URINE Negative (NEGATIVE); PH,URINE 5.5 (5.0-8.0); PROTEIN,URINE Negative (NEGATIVE)
[2021-03-16 11:09] LABS: CREATININE,URINE RANDOM 160 mg/dL (30-135); SODIUM,URINE RANDOM < 13 mmol/l (40-220)
[2021-03-16 11:21] LABS: BACTERIA,URINE Rare /HPF (None Seen); MUCUS,URINE Rare LPF (None Seen); RBC,URINE 0-1 /HPF (0-1); SQUAMOUS EPITHELIAL CELL,UR Rare /HPF (0-2)
[2021-03-16 12:16] VITALS: BP 124/65
[2021-03-16 12:30] LABS: HEMATOCRIT 21.4 % (42-54)
[2021-03-16] MEDS ORDERED: ALBUMIN (HUMAN) 25% 50 ML IV SCH (14:00)
[2021-03-16] MEDS: LACTULOSE 20 GM/30 ML UDCUP PO SCH ×2 (14:00→20:27)
[2021-03-16 14:40] VITALS: BP 104/57
[2021-03-16 17:18] LABS: CREATININE,URINE RANDOM 123 mg/dL (30-135); SODIUM,URINE RANDOM < 13 mmol/l (40-220)
[2021-03-16 17:20] LABS: ALBUMIN,BODY FLUID 0.5 g/dL
[2021-03-16 18:18] LABS: APPEARANCE BODY FLUID CLOUDY (CLEAR); COLOR,BODY FLUID YELLOW (LT YELLOW); SPECIMENTYPE,BODY FLUID ASCITES; TOTAL VOLUME,BODY FLUID 9100 mL
[2021-03-16 18:19] LABS: BODY FLUID RBC 647 /cu. mm.; BODY FLUID WBC 1812 /cu. mm.
[2021-03-16 18:28] LABS: MAGNESIUM 2.7 mg/dL (1.80-2.40); PHOSPHORUS 4.4 mg/dL (2.5-4.9); THYROID STIMULATING HORMONE 2.79 uIU/mL (0.36-3.74); URIC ACID 8.7 mg/dL (2.6-7.2)
[2021-03-16 18:34] LABS: HEMATOCRIT 20.4 % (42-54)
[2021-03-16 18:36] VITALS: BP 104/51
[2021-03-16 18:37] LABS: BF LYMPHOCYTE 2 %; BF MONOCYTE 1 %; BF OTHER CELLS 3
[2021-03-16 19:48] VITALS: BP 109/45
[2021-03-16] MEDS: PANTOPRAZOLE 40 MG/VIAL IVP SCH (20:27)
[2021-03-16] MEDS: ALBUMIN (HUMAN) 25% 50 ML IV SCH (22:00)
[2021-03-16 23:27] VITALS: BP 104/46
[2021-03-17] VITALS (7 sets, daily range): BP systolic 100–107; BP diastolic 47–50
[2021-03-17] MEDS: ALBUMIN (HUMAN) 25% 50 ML IV SCH ×5 (01:31→23:53)
[2021-03-17 01:34] LABS: HEMATOCRIT 23.1 % (42-54)
[2021-03-17 06:20] LABS: BASOPHILS % (AUTO) 0.2 % (0.0-5.0); EOSINOPHILS % (AUTO) 0.8 % (0.0-8.0); HEMATOCRIT 22.2 % (42-54); LYMPHOCYTES % (AUTO) 10.3 % (21.0-51.0); MEAN CORPUSCULAR HEMOGLOBIN 31.8 pg (27.0-33.0); MEAN CORPUSCULAR HGB CONC 34.2 g/dL (32.0-36.0); MEAN CORPUSCULAR VOLUME 92.9 fL (79-99); MONOCYTES % (AUTO) 15.1 % (3.0-13.0); NEUTROPHILS % (AUTO) 72.6 % (40.0-77.0); PLATELET COUNT (AUTO) 46 K/uL (130-400); RED BLOOD CELL COUNT(AUTO) 2.39 MIL/uL (4.50-6.20); RED CELL DISTRIBUTION WIDTH 21.2 % (11.0-15.5); WHITE BLOOD COUNT (AUTO) 5.9 K/uL (4.8-10.8)
[2021-03-17] MEDS: ONDANSETRON 4MG INJ IV PRN ×2 (06:32→21:59)
[2021-03-17 06:47] LABS: ALBUMIN 2.6 g/dL (3.5-5.0); BILIRUBIN,TOTAL 7.9 mg/dL (0.2-1.0); CREATININE 2.2 mg/dL (0.5-1.5); MAGNESIUM 2.6 mg/dL (1.80-2.40); PHOSPHORUS 3.5 mg/dL (2.5-4.9); POTASSIUM 4.9 mmol/L (3.5-5.1); THYROID STIMULATING HORMONE 2.61 uIU/mL (0.36-3.74); TOTAL PROTEIN, SERUM 4.5 g/dL (6.0-8.3); URIC ACID 8.3 mg/dL (2.6-7.2)
[2021-03-17] MEDS: RIFAXIMIN 550 MG TABLET PO SCH ×2 (10:23→21:59)
[2021-03-17] MEDS: PANTOPRAZOLE 40 MG/VIAL IVP SCH ×2 (10:23→21:59)
[2021-03-17] MEDS: MIDODRINE HCL 5 MG TABLET PO SCH ×3 (10:23→21:59)
[2021-03-17] MEDS: LACTULOSE 20 GM/30 ML UDCUP PO SCH ×3 (10:23→21:59)
[2021-03-17] MEDS: CEFTRIAXONE 1G VIAL IVP SCH (10:23)
[2021-03-17] MEDS ORDERED: ZOSYN 3.375GM +NS 50ML IV SCH (15:05)
[2021-03-17] MEDS ORDERED: 0.9%NACL 50ML 50 ML IV SCH (15:06)
[2021-03-17] MEDS ORDERED: 0.9%NACL 100ML 100 ML ONE (21:53)
[2021-03-17] MEDS: ZOSYN 3.375GM+NS 50ML 50 ML IV SCH (21:58)
[2021-03-17] MEDS: OCTREOTIDE ACETATE 100 MCG/ML AMP IV SCH (22:10)
[2021-03-18 04:22] VITALS: BP 88/49
[2021-03-18 04:24] LABS: APPEARANCE,URINE Clear (CLEAR); BILIRUBIN,URINE Small (NEGATIVE); COLOR,URINE Dark Yellow (YELLOW); GLUCOSE, URINE (UA) Negative (NEGATIVE); KETONES,URINE Negative (NEGATIVE); LEUKOCYTE ESTERASE ,URINE Negative (NEGATIVE); NITRATE,URINE Negative (NEGATIVE); OCCULT BLOOD,URINE Negative (NEGATIVE); PROTEIN,URINE Negative (NEGATIVE)
[2021-03-18] MEDS: ZOSYN 3.375GM+NS 50ML 50 ML IV SCH ×3 (04:24→21:13)
[2021-03-18 04:26] LABS: SODIUM,URINE RANDOM < 13 mmol/l (40-220)
[2021-03-18 04:34] LABS: BACTERIA,URINE None Seen /HPF (None Seen); RBC,URINE None Seen /HPF (0-1); SQUAMOUS EPITHELIAL CELL,UR Few /HPF (0-2); WBC,URINE None Seen /HPF (0-1)
[2021-03-18] MEDS ORDERED: HYDROMORPHONE 0.5 MG SYG (0.5MG/0.5ML) IVP ONE ×2 (05:00→16:00)
[2021-03-18 05:07] LABS: BASOPHILS % (AUTO) 0.2 % (0.0-5.0); EOSINOPHILS % (AUTO) 1.6 % (0.0-8.0); LYMPHOCYTES % (AUTO) 12.3 % (21.0-51.0); MEAN CORPUSCULAR HEMOGLOBIN 32.7 pg (27.0-33.0); MEAN CORPUSCULAR HGB CONC 34.3 g/dL (32.0-36.0); MEAN CORPUSCULAR VOLUME 95.5 fL (79-99); MONOCYTES % (AUTO) 21.1 % (3.0-13.0); PLATELET COUNT (AUTO) 45 K/uL (130-400); RED CELL DISTRIBUTION WIDTH 21.2 % (11.0-15.5); WHITE BLOOD COUNT (AUTO) 4.9 K/uL (4.8-10.8)
[2021-03-18 05:23] LABS: ALBUMIN 2.9 g/dL (3.5-5.0); BILIRUBIN,TOTAL 5.9 mg/dL (0.2-1.0); CREATININE 2.4 mg/dL (0.5-1.5); CRP QUANTITATIVE 32.9 mg/L (0.00-9.0); MAGNESIUM 2.7 mg/dL (1.80-2.40); PHOSPHORUS 3.5 mg/dL (2.5-4.9); POTASSIUM 4.6 mmol/L (3.5-5.1); THYROID STIMULATING HORMONE 1.35 uIU/mL (0.36-3.74); TOTAL PROTEIN, SERUM 4.6 g/dL (6.0-8.3); URIC ACID 7.9 mg/dL (2.6-7.2)
[2021-03-18] MEDS: ALBUMIN (HUMAN) 25% 50 ML IV SCH ×3 (05:42→22:20)
[2021-03-18 06:20] LABS: ERYTHROCYTE SEDIMENTATION RATE 3 MM/HR (0-15)
[2021-03-18 07:00] VITALS: BP 104/54
[2021-03-18] MEDS: RIFAXIMIN 550 MG TABLET PO SCH ×2 (09:10→21:14)
[2021-03-18] MEDS: OCTREOTIDE ACETATE 100 MCG/ML AMP IV SCH ×3 (09:10→21:13)
[2021-03-18] MEDS: MIDODRINE HCL 5 MG TABLET PO SCH ×3 (09:11→21:14)
[2021-03-18] MEDS: PANTOPRAZOLE 40 MG/VIAL IVP SCH ×2 (09:11→21:13)
[2021-03-18] MEDS: LACTULOSE 20 GM/30 ML UDCUP PO SCH ×3 (09:11→21:13)
[2021-03-18 11:00] VITALS: BP 80/37
[2021-03-18 15:00] VITALS: BP 122/81
[2021-03-18 20:00] VITALS: BP 88/46
[2021-03-19] VITALS: BP 91/56
[2021-03-19 04:00] VITALS: BP 92/52
[2021-03-19 05:19] LABS: BASOPHILS % (AUTO) 0.6 % (0.0-5.0); EOSINOPHILS % (AUTO) 3.2 % (0.0-8.0); HEMATOCRIT 21.4 % (42-54); LYMPHOCYTES % (AUTO) 13.1 % (21.0-51.0); MEAN CORPUSCULAR HEMOGLOBIN 32.7 pg (27.0-33.0); MEAN CORPUSCULAR HGB CONC 34.6 g/dL (32.0-36.0); MEAN CORPUSCULAR VOLUME 94.7 fL (79-99); MONOCYTES % (AUTO) 19.7 % (3.0-13.0); PLATELET COUNT (AUTO) 50 K/uL (130-400); RED BLOOD CELL COUNT(AUTO) 2.26 MIL/uL (4.50-6.20); RED CELL DISTRIBUTION WIDTH 20.7 % (11.0-15.5); WHITE BLOOD COUNT (AUTO) 4.7 K/uL (4.8-10.8)
[2021-03-19] MEDS: ONDANSETRON 4MG INJ IV PRN (05:32)
[2021-03-19] MEDS: ZOSYN 3.375GM+NS 50ML 50 ML IV SCH ×3 (05:32→21:14)
[2021-03-19 05:34] LABS: ALBUMIN 2.8 g/dL (3.5-5.0); BILIRUBIN,TOTAL 7.6 mg/dL (0.2-1.0); CREATININE 2.1 mg/dL (0.5-1.5); POTASSIUM 4.2 mmol/L (3.5-5.1); TOTAL PROTEIN, SERUM 4.5 g/dL (6.0-8.3)
[2021-03-19] MEDS: ALBUMIN (HUMAN) 25% 50 ML IV SCH ×3 (05:56→22:30)
[2021-03-19 07:00] VITALS: BP 99/60
[2021-03-19] MEDS: OCTREOTIDE ACETATE 100 MCG/ML AMP IV SCH ×3 (09:26→21:13)
[2021-03-19] MEDS: PANTOPRAZOLE 40 MG/VIAL IVP SCH ×2 (09:26→21:14)
[2021-03-19] MEDS: LACTULOSE 20 GM/30 ML UDCUP PO SCH ×4 (09:26→21:18)
[2021-03-19] MEDS: MIDODRINE HCL 5 MG TABLET PO SCH ×3 (09:26→21:14)
[2021-03-19] MEDS: RIFAXIMIN 550 MG TABLET PO SCH ×2 (09:26→21:14)
[2021-03-19 11:00] VITALS: BP 97/57
[2021-03-19 15:00] VITALS: BP 98/58
[2021-03-19 20:00] VITALS: BP 94/57
[2021-03-20] VITALS: BP 98/41
[2021-03-20 04:00] VITALS: BP 81/45
[2021-03-20 05:09] LABS: BASOPHILS % (AUTO) 0.2 % (0.0-5.0); EOSINOPHILS % (AUTO) 2.6 % (0.0-8.0); LYMPHOCYTES % (AUTO) 13.2 % (21.0-51.0); MEAN CORPUSCULAR HEMOGLOBIN 32.9 pg (27.0-33.0); MEAN CORPUSCULAR HGB CONC 33.8 g/dL (32.0-36.0); MEAN CORPUSCULAR VOLUME 97.1 fL (79-99); MONOCYTES % (AUTO) 19.8 % (3.0-13.0); NEUTROPHILS % (AUTO) 63.5 % (40.0-77.0); PLATELET COUNT (AUTO) 48 K/uL (130-400); RED CELL DISTRIBUTION WIDTH 20.9 % (11.0-15.5); WHITE BLOOD COUNT (AUTO) 5.5 K/uL (4.8-10.8)
[2021-03-20] MEDS: ZOSYN 3.375GM+NS 50ML 50 ML IV SCH ×2 (05:09→13:00)
[2021-03-20 05:18] LABS: HEMATOCRIT 20.4 % (42-54)
[2021-03-20 05:22] LABS: ALBUMIN 2.8 g/dL (3.5-5.0); BILIRUBIN,TOTAL 5.2 mg/dL (0.2-1.0); CREATININE 2.2 mg/dL (0.5-1.5); POTASSIUM 4.6 mmol/L (3.5-5.1); TOTAL PROTEIN, SERUM 4.4 g/dL (6.0-8.3)
[2021-03-20] MEDS: ALBUMIN (HUMAN) 25% 50 ML IV SCH ×2 (05:45→14:00)
[2021-03-20 07:19] VITALS: BP 86/49
[2021-03-20] MEDS: LACTULOSE 20 GM/30 ML UDCUP PO SCH ×2 (09:00→14:00)
[2021-03-20] MEDS: PANTOPRAZOLE 40 MG/VIAL IVP SCH (09:43)
[2021-03-20] MEDS: OCTREOTIDE ACETATE 100 MCG/ML AMP IV SCH ×2 (09:45→14:45)
[2021-03-20] MEDS: MIDODRINE HCL 5 MG TABLET PO SCH ×2 (09:45→14:48)
[2021-03-20] MEDS: RIFAXIMIN 550 MG TABLET PO SCH (09:45)
[2021-03-20 10:50] VITALS: BP 92/52
== END 2021-03-20 15:35 | disposition left against medical advice (07) | DRG 432 ==
LOC: EDH 06:28 → OBSVTOIN 06:29 → EDHIP 06:29 → 3AH 03-17 21:05
PROVIDERS: ADMIT Internal Medicine; ATTEND Internal Medicine
PROC: 0W9G3ZZ Drainage of Peritoneal Cavity, Percutaneous Approach (ICD-10-PCS; principal; 2021-03-16)
PROC: 30233N1 Transfusion of Nonautologous Red Blood Cells into Peripheral Vein, Percutaneous Approach (ICD-10-PCS; 2021-03-16)
DX: K70.31 Alcoholic cirrhosis of liver with ascites (principal); K65.2 Spontaneous bacterial peritonitis; K72.00 Acute and subacute hepatic failure without coma; K76.7 Hepatorenal syndrome; N17.9 Acute kidney failure, unspecified; E44.0 Moderate protein-calorie malnutrition; E87.1 Hypo-osmolality and hyponatremia; N18.4 Chronic kidney disease, stage 4 (severe); K76.6 Portal hypertension; D62 Acute posthemorrhagic anemia; D63.8 Anemia in other chronic diseases classified elsewhere; D69.6 Thrombocytopenia, unspecified; E11.22 Type 2 diabetes mellitus with diabetic chronic kidney disease; E66.9 Obesity, unspecified; F10.10 Alcohol abuse, uncomplicated; F17.200 Nicotine dependence, unspecified, uncomplicated; K72.90 Hepatic failure, unspecified without coma; K80.20 Calculus of gallbladder without cholecystitis without obstruction; Z91.19 Patient's noncompliance with other medical treatment and regimen; Z53.29 Procedure and treatment not carried out because of patient's decision for other reasons; Y90.9 Presence of alcohol in blood, level not specified; Z68.22 Body mass index [BMI] 22.0-22.9, adult
CPT/HCPCS: 36415; 49083; 71045; 76770; 80053; 81001; 82042; 82140; 82270; 82570; 83690; 83735; 83880; 83935; 84100; 84145; 84157; 84300; 84443; 84484; 84540; 84550; 85014; 85018; 85025; 85610; 85651; 85730; 86140; 86850; 86900; 86901; 86923; 87071; 87205; 89051; 93005; C9113; G0378; J0696; J1170; J2354; J2405; J2543; J3430; P9016; P9047

== ENCOUNTER 2021-03-23 01:00 | Observation (INO) | payer MEDICAID, OTHER ==
[2021-03-23] VITALS (7 sets, daily range): BP systolic 105–119; BP diastolic 61–70
[~2021-03-23] VITALS: Ht 170.2 cm; Wt 68.5 kg
[2021-03-23] MEDS ORDERED: ORPHENADRINE CITRATE 30 MG/ML ML IV ONE (03:00)
[2021-03-23] MEDS ORDERED: METOCLOPRAMIDE 10 MG/2 ML VIAL IVP ONE (03:00)
[2021-03-23] MEDS ORDERED: FAMOTIDINE 20MG VIAL IV ONE ×2 (03:00→03:33)
[2021-03-23] MEDS ORDERED: 0.9%NACL 1000ML 1,000 ML IV ONE ×2 (03:00→03:34)
[2021-03-23] MEDS ORDERED: PANTOPRAZOLE 40 MG/VIAL IVP ONE (03:00)
[2021-03-23] MEDS ORDERED: ONDANSETRON 4MG INJ IVP ONE (03:00)
[2021-03-23] MEDS ORDERED: ONDANSETRON 4MG INJ ONE (03:32)
[2021-03-23] MEDS ORDERED: METOCLOPRAMIDE 10 MG/2 ML VIAL ONE (03:32)
[2021-03-23] MEDS ORDERED: PANTOPRAZOLE 40 MG/VIAL ONE (03:33)
[2021-03-23] MEDS ORDERED: ORPHENADRINE CITRATE 30 MG/ML ML ONE (03:33)
[2021-03-23 03:39] LABS: CREATININE 2.3 mg/dL (0.5-1.5); POTASSIUM 5.4 mmol/L (3.5-5.1)
[2021-03-23 03:48] LABS: ALBUMIN 3.2 g/dL (3.5-5.0); BASOPHILS % (AUTO) 0.2 % (0.0-5.0); BILIRUBIN,TOTAL 8.1 mg/dL (0.2-1.0); EOSINOPHILS % (AUTO) 0.7 % (0.0-8.0); HEMATOCRIT 25.4 % (42-54); LYMPHOCYTES % (AUTO) 9.9 % (21.0-51.0); MEAN CORPUSCULAR HEMOGLOBIN 33.6 pg (27.0-33.0); MEAN CORPUSCULAR VOLUME 95.8 fL (79-99); MONOCYTES % (AUTO) 11.5 % (3.0-13.0); NEUTROPHILS % (AUTO) 76.8 % (40.0-77.0); PLATELET COUNT (AUTO) 50 K/uL (130-400); RED BLOOD CELL COUNT(AUTO) 2.65 MIL/uL (4.50-6.20); RED CELL DISTRIBUTION WIDTH 19.7 % (11.0-15.5); TOTAL PROTEIN, SERUM 5.6 g/dL (6.0-8.3); WHITE BLOOD COUNT (AUTO) 5.6 K/uL (4.8-10.8)
[2021-03-23 03:54] LABS: B-TYPE NATRIURETIC PEPTIDE 59 pg/mL (0-100)
[2021-03-23] MEDS ORDERED: HEPARIN 5,000 UNIT VIAL SQ SCH (06:00)
[2021-03-23] MEDS ORDERED: LACTULOSE 20 GM/30 ML UDCUP PO SCH ×2 (06:00→11:00)
[2021-03-23] MEDS ORDERED: [UNRECOGNIZED DRUG - REMARK] MISC SCH (06:30)
[2021-03-23] MEDS ORDERED: RIFAXIMIN 200 MG TABLET PO SCH (09:00)
[2021-03-23] MEDS ORDERED: FUROSEMIDE 20 MG TABLET PO SCH (09:00)
[2021-03-23] MEDS: ALBUMIN (HUMAN) 25% 50 ML IV SCH ×3 (09:00→21:00)
[2021-03-23] MEDS ORDERED: SPIRONOLACTONE 25 MG TAB PO SCH (09:00)
[2021-03-23] MEDS: FAMOTIDINE 20MG VIAL IV SCH (10:01)
[2021-03-23] MEDS: CEFTRIAXONE 1G VIAL IVP SCH (10:02)
[2021-03-23] MEDS: MIDODRINE HCL 5 MG TABLET PO SCH ×3 (10:02→21:17)
[2021-03-23 10:20] LABS: CREATININE 2.1 mg/dL (0.5-1.5); POTASSIUM 4.6 mmol/L (3.5-5.1)
[2021-03-23 10:22] LABS: INR 1.46 (0.85-1.15); PROTHROMBIN TIME 15.4 SEC (9.6-11.6)
[2021-03-23 10:24] LABS: ALBUMIN 3.2 g/dL (3.5-5.0); BILIRUBIN,TOTAL 7.9 mg/dL (0.2-1.0); PARTIAL THROMBOPLASTIN TIME 39.9 SEC (26.3-35.5); TOTAL PROTEIN, SERUM 5.5 g/dL (6.0-8.3)
[2021-03-23] MEDS: RIFAXIMIN 550 MG TABLET PO SCH (21:17)
[2021-03-24] MEDS: LACTULOSE 20 GM/30 ML UDCUP PO SCH ×2 (01:12→03:06)
[2021-03-24] MEDS: ALBUMIN (HUMAN) 25% 50 ML IV SCH ×3 (03:05→16:46)
[2021-03-24 04:00] VITALS: BP 125/64
[2021-03-24] MEDS ORDERED: MORPHINE 2 MG SYG ONE (04:27)
[2021-03-24] MEDS ORDERED: MORPHINE 2 MG SYG IVP ONE (04:30)
[2021-03-24 05:11] LABS: BASOPHILS % (AUTO) 0.2 % (0.0-5.0); EOSINOPHILS % (AUTO) 2.7 % (0.0-8.0); HEMATOCRIT 23.3 % (42-54); LYMPHOCYTES % (AUTO) 12.6 % (21.0-51.0); MEAN CORPUSCULAR HEMOGLOBIN 33.3 pg (27.0-33.0); MEAN CORPUSCULAR HGB CONC 33.5 g/dL (32.0-36.0); MEAN CORPUSCULAR VOLUME 99.6 fL (79-99); MONOCYTES % (AUTO) 17.6 % (3.0-13.0); NEUTROPHILS % (AUTO) 66.1 % (40.0-77.0); PLATELET COUNT (AUTO) 40 K/uL (130-400); RED BLOOD CELL COUNT(AUTO) 2.34 MIL/uL (4.50-6.20); WHITE BLOOD COUNT (AUTO) 4.8 K/uL (4.8-10.8)
[2021-03-24 05:24] LABS: ALBUMIN 3.3 g/dL (3.5-5.0); BILIRUBIN,TOTAL 4.8 mg/dL (0.2-1.0); CREATININE 2.1 mg/dL (0.5-1.5); MAGNESIUM 2.6 mg/dL (1.80-2.40); PHOSPHORUS 3.9 mg/dL (2.5-4.9); POTASSIUM 4.3 mmol/L (3.5-5.1); TOTAL PROTEIN, SERUM 5.3 g/dL (6.0-8.3)
[2021-03-24] MEDS ORDERED: LACTULOSE 20 GM/30 ML UDCUP PO PRN (07:00)
[2021-03-24 07:30] VITALS: BP 108/68
[2021-03-24] MEDS: RIFAXIMIN 550 MG TABLET PO SCH (09:15)
[2021-03-24] MEDS: FAMOTIDINE 20MG VIAL IV SCH (09:15)
[2021-03-24] MEDS: CEFTRIAXONE 1G VIAL IVP SCH (09:15)
[2021-03-24] MEDS: MIDODRINE HCL 5 MG TABLET PO SCH ×2 (09:15→14:36)
[2021-03-24 11:14] VITALS: BP 111/74
[2021-03-24 16:00] VITALS: BP 120/63
[2021-03-24 20:00] VITALS: BP 103/58
== END 2021-03-24 21:10 | disposition home or self-care (01) ==
LOC: EDH 01:00 → EDHIP 01:01 → 3CH 21:18
PROVIDERS: ADMIT Internal Medicine; ATTEND Internal Medicine
DX: K74.60 Unspecified cirrhosis of liver (principal); J96.90 Respiratory failure, unspecified, unspecified whether with hypoxia or hypercapnia; N17.9 Acute kidney failure, unspecified; E11.22 Type 2 diabetes mellitus with diabetic chronic kidney disease; N18.9 Chronic kidney disease, unspecified; D63.1 Anemia in chronic kidney disease; E11.65 Type 2 diabetes mellitus with hyperglycemia; R18.8 Other ascites; K72.90 Hepatic failure, unspecified without coma; K76.7 Hepatorenal syndrome; M54.5 Low back pain; K76.6 Portal hypertension; I51.7 Cardiomegaly; K80.20 Calculus of gallbladder without cholecystitis without obstruction; K59.00 Constipation, unspecified; E87.1 Hypo-osmolality and hyponatremia; F10.10 Alcohol abuse, uncomplicated; D69.6 Thrombocytopenia, unspecified; E87.5 Hyperkalemia; Z87.891 Personal history of nicotine dependence; Z91.19 Patient's noncompliance with other medical treatment and regimen
CPT/HCPCS: 36415 ×2; 71045; 80053 ×3; 82140 ×3; 82270; 83690; 83735; 83880; 83935; 84100; 84145; 84300; 84484; 85025 ×2; 85610; 85730; 93005; 96361; 96365; 96366; 96375; 96376 ×2; 99285; G0378 ×39; J0696 ×2; J2360; J2405; J2765; J7030; P9047 ×5; S0028 ×3; S0164; C9113; J3490

== ENCOUNTER 2021-04-01 07:56 | Emergency (ER) | payer MEDICAID, OTHER ==
[~2021-04-01] VITALS: Ht 170.2 cm; Wt 67.1 kg
[2021-04-01 08:03] VITALS: BP 118/66
[2021-04-01 08:57] LABS: BASOPHILS % (AUTO) 0.2 % (0.0-5.0); HEMATOCRIT 23.1 % (42-54); LYMPHOCYTES % (AUTO) 16.3 % (21.0-51.0); MEAN CORPUSCULAR HGB CONC 33.3 g/dL (32.0-36.0); MEAN CORPUSCULAR VOLUME 99.1 fL (79-99); MONOCYTES % (AUTO) 13.9 % (3.0-13.0); PLATELET COUNT (AUTO) 82 K/uL (130-400); RED BLOOD CELL COUNT(AUTO) 2.33 MIL/uL (4.50-6.20); RED CELL DISTRIBUTION WIDTH 19.9 % (11.0-15.5); WHITE BLOOD COUNT (AUTO) 5.3 K/uL (4.8-10.8)
[2021-04-01 09:07] LABS: INR 1.43 (0.85-1.15); PROTHROMBIN TIME 15.1 SEC (9.6-11.6)
[2021-04-01 09:08] LABS: PARTIAL THROMBOPLASTIN TIME 34.9 SEC (26.3-35.5); POTASSIUM 5.8 mmol/L (3.5-5.1)
[2021-04-01 09:14] LABS: ALBUMIN 3.3 g/dL (3.5-5.0); BILIRUBIN,TOTAL 6.2 mg/dL (0.2-1.0); TOTAL PROTEIN, SERUM 6.2 g/dL (6.0-8.3)
[2021-04-01] MEDS ORDERED: ALBUMIN (HUMAN) 25% 200 ML IV ONE ×2 (12:45→13:00)
[2021-04-01] MEDS ORDERED: SODIUM BICARB 50MEQ 50ML VIAL 50 ML ONE (12:46)
[2021-04-01 15:37] VITALS: BP 109/46
[2021-04-01 16:36] VITALS: BP 96/57
== END 2021-04-01 16:39 | disposition home or self-care (01) ==
LOC: EDH 07:56
DX: K70.31 Alcoholic cirrhosis of liver with ascites (principal); D64.9 Anemia, unspecified; E87.1 Hypo-osmolality and hyponatremia; E80.6 Other disorders of bilirubin metabolism; K76.7 Hepatorenal syndrome; I25.2 Old myocardial infarction; Z79.899 Other long term (current) drug therapy; F17.200 Nicotine dependence, unspecified, uncomplicated
CPT/HCPCS: 36415; 49083; 71045; 80053; 82140; 85025; 85610; 85730; 93005; 96365; 99285; C1729; J3490; P9046

== ENCOUNTER 2021-04-09 07:54 | Inpatient (IN) | payer MEDICAID, OTHER ==
[2021-04-09] VITALS (12 sets, daily range): BP systolic 98–117; BP diastolic 48–57
[~2021-04-09] VITALS: Ht 170.2 cm; Wt 67.6 kg
[2021-04-09 08:27] LABS: BASOPHILS % (AUTO) 0.2 % (0.0-5.0); EOSINOPHILS % (AUTO) 0.9 % (0.0-8.0); HEMATOCRIT 22.1 % (42-54); LYMPHOCYTES % (AUTO) 13.3 % (21.0-51.0); MEAN CORPUSCULAR HEMOGLOBIN 33.6 pg (27.0-33.0); MEAN CORPUSCULAR HGB CONC 33.5 g/dL (32.0-36.0); MEAN CORPUSCULAR VOLUME 100.5 fL (79-99); MONOCYTES % (AUTO) 11.8 % (3.0-13.0); NEUTROPHILS % (AUTO) 72.7 % (40.0-77.0); PLATELET COUNT (AUTO) 74 K/uL (130-400); RED CELL DISTRIBUTION WIDTH 19.5 % (11.0-15.5); WHITE BLOOD COUNT (AUTO) 5.4 K/uL (4.8-10.8)
[2021-04-09 08:40] LABS: INR 1.43 (0.85-1.15); PROTHROMBIN TIME 15.1 SEC (9.6-11.6)
[2021-04-09 08:41] LABS: ALBUMIN 2.9 g/dL (3.5-5.0); BILIRUBIN,TOTAL 6.8 mg/dL (0.2-1.0); CREATININE 2.9 mg/dL (0.5-1.5); TOTAL PROTEIN, SERUM 5.7 g/dL (6.0-8.3)
[2021-04-09 08:42] LABS: PARTIAL THROMBOPLASTIN TIME 36.6 SEC (26.3-35.5)
[2021-04-09] MEDS ORDERED: INSULIN HUMULIN R 100 UNIT/ML 3ML IV ONE (11:00)
[2021-04-09] MEDS ORDERED: SODIUM BICARB 8.4% 50ML SYRINGE IVP ONE (11:00)
[2021-04-09] MEDS ORDERED: ALBUTEROL 0.083% 2.5 MG/3 ML INH IH ONE (11:00)
[2021-04-09] MEDS ORDERED: DEXTROSE 50%-WATER 50 ML DISP.SYRIN IV ONE (11:00)
[2021-04-09] MEDS ORDERED: CALCIUM GLUC 1GM VIAL 1 GM in 0.9%NACL 100ML 100 ML IV SCH (11:00)
[2021-04-09] MEDS ORDERED: SODIUM BICARB 50MEQ 50ML VIAL 50 ML ONE ×2 (11:03→17:25)
[2021-04-09] MEDS ORDERED: CALCIUM GLUC 1GM VIAL IV ONE (11:03)
[2021-04-09] MEDS ORDERED: 0.9%NACL 100ML 100 ML ONE (11:05)
[2021-04-09] MEDS: KAYEXALATE 15GM/60ML PO NR (11:22)
[2021-04-09] MEDS ORDERED: ACETAMINOPHEN 325 MG TAB PO PRN ×2 (12:00)
[2021-04-09] MEDS ORDERED: ONDANSETRON 4MG INJ IV PRN (12:00)
[2021-04-09] MEDS ORDERED: [UNRECOGNIZED DRUG - REMARK] MISC SCH (12:00)
[2021-04-09] MEDS ORDERED: OCTREOTIDE ACETATE 100 MCG/ML AMP ONE (12:46)
[2021-04-09] MEDS ORDERED: MIDODRINE HCL 5 MG TABLET ONE (12:46)
[2021-04-09] MEDS ORDERED: PHARMACY COMMUNICATION MISC SCH ×2 (13:00→15:30)
[2021-04-09] MEDS: OCTREOTIDE ACETATE 100 MCG/ML AMP SQ SCH ×2 (13:02→22:10)
[2021-04-09] MEDS: CEFTRIAXONE 1G VIAL IV SCH (13:02)
[2021-04-09] MEDS: MIDODRINE HCL 5 MG TABLET PO SCH ×2 (13:02→22:02)
[2021-04-09] MEDS ORDERED: ALBUMIN (HUMAN) 25% 200 ML IV ONE (13:17)
[2021-04-09] MEDS ORDERED: [UNRECOGNIZED DRUG - REMARK] MISC SCH (13:30)
[2021-04-09] MEDS ORDERED: ALBUMIN (HUMAN) 25% 200 ML IV SCH ×2 (15:00→16:00)
[2021-04-09] MEDS ORDERED: FUROSEMIDE 40MG VIAL IV SCH (15:00)
[2021-04-09 16:38] LABS: ABG BASE EXCESS -9.6 mmol/L (-2.0-3.0); ABG HCO3 15.3 mmol/L (21.0-28.0); ABG OXYGEN SATURATION 97.1 % (95.0-99.0); ABG PCO2 29 mmHg (35-48)
[2021-04-09] MEDS ORDERED: PHYTONADIONE 10 MG/1 ML AMP IM ONE (17:00)
[2021-04-09 17:05] LABS: GLUCOSE,BODY FLUID 124 mg/dL (1-40)
[2021-04-09 17:19] LABS: APPEARANCE BODY FLUID SLIGHTLY CLOUDY (CLEAR); COLOR,BODY FLUID YELLOW (LT YELLOW); SPECIMENTYPE,BODY FLUID ASCITES; TOTAL VOLUME,BODY FLUID 10300 mL
[2021-04-09 17:20] LABS: BODY FLUID WBC 12 /cu. mm.
[2021-04-09 17:21] LABS: BODY FLUID RBC 460 /cu. mm.
[2021-04-09] MEDS ORDERED: SODIUM BICARB 8.4% 50ML SYRINGE IVP SCH (17:30)
[2021-04-09 17:49] LABS: BF LYMPHOCYTE 34 %; BF MESOTHELIAL 58 %
[2021-04-09] MEDS ORDERED: FAMOTIDINE 20MG VIAL IV SCH (21:00)
[2021-04-09] MEDS: LACTULOSE 20 GM/30 ML UDCUP PO SCH (21:00)
[2021-04-09] MEDS: PANTOPRAZOLE 40 MG/VIAL IVP SCH (22:09)
[2021-04-10] VITALS (13 sets, daily range): BP systolic 104–115; BP diastolic 45–63
[2021-04-10 02:40] LABS: HEMATOCRIT 18.3 % (42-54)
[2021-04-10 05:17] LABS: % IRON SATURATION 96.5 % (30-44)
[2021-04-10 06:45] LABS: HEMATOCRIT 21.8 % (42-54)
[2021-04-10] MEDS ORDERED: FUROSEMIDE 40MG VIAL ONE (07:20)
[2021-04-10 08:49] LABS: BASOPHILS % (AUTO) 0.6 % (0.0-5.0); EOSINOPHILS % (AUTO) 1.4 % (0.0-8.0); HEMATOCRIT 21.6 % (42-54); LYMPHOCYTES % (AUTO) 11.4 % (21.0-51.0); MEAN CORPUSCULAR HEMOGLOBIN 32.2 pg (27.0-33.0); MEAN CORPUSCULAR HGB CONC 33.8 g/dL (32.0-36.0); MEAN CORPUSCULAR VOLUME 95.2 fL (79-99); MONOCYTES % (AUTO) 16.3 % (3.0-13.0); NEUTROPHILS % (AUTO) 69.5 % (40.0-77.0); PLATELET COUNT (AUTO) 44 K/uL (130-400); RED BLOOD CELL COUNT(AUTO) 2.27 MIL/uL (4.50-6.20); RED CELL DISTRIBUTION WIDTH 21.5 % (11.0-15.5); WHITE BLOOD COUNT (AUTO) 3.6 K/uL (4.8-10.8)
[2021-04-10 08:54] LABS: CREATININE 2.4 mg/dL (0.5-1.5); POTASSIUM 5.7 mmol/L (3.5-5.1)
[2021-04-10 08:59] LABS: ALBUMIN 3.1 g/dL (3.5-5.0); BILIRUBIN,TOTAL 8.6 mg/dL (0.2-1.0); TOTAL PROTEIN, SERUM 4.7 g/dL (6.0-8.3)
[2021-04-10 09:01] LABS: INR 1.76 (0.85-1.15); PROTHROMBIN TIME 18.2 SEC (9.6-11.6)
[2021-04-10] MEDS: LACTULOSE 20 GM/30 ML UDCUP PO SCH ×2 (09:08→20:32)
[2021-04-10] MEDS: PANTOPRAZOLE 40 MG/VIAL IVP SCH ×2 (09:08→20:33)
[2021-04-10] MEDS: PHYTONADIONE 10 MG/1 ML AMP IM SCH (09:08)
[2021-04-10] MEDS: MIDODRINE HCL 5 MG TABLET PO SCH ×3 (09:08→20:32)
[2021-04-10] MEDS: OCTREOTIDE ACETATE 100 MCG/ML AMP SQ SCH ×3 (09:09→20:33)
[2021-04-10 09:16] LABS: PLATELET MORPHOLOGY COMMENT MARKED DECREASE
[2021-04-10] MEDS ORDERED: KAYEXALATE 15GM/60ML PO ONE (09:30)
[2021-04-10] MEDS ORDERED: SOLU-MEDROL 125MG VIAL ONE (11:30)
[2021-04-10] MEDS ORDERED: DiphenhydrAMINE HCL 50 MG/ML VIAL ONE (11:30)
[2021-04-10] MEDS: KAYEXALATE 15GM/60ML PO NR (11:44)
[2021-04-10 12:32] LABS: APPEARANCE,URINE Clear (CLEAR); BILIRUBIN,URINE Negative (NEGATIVE); COLOR,URINE Dark Yellow (YELLOW); GLUCOSE, URINE (UA) Negative (NEGATIVE); KETONES,URINE Negative (NEGATIVE); LEUKOCYTE ESTERASE ,URINE Negative (NEGATIVE); NITRATE,URINE Negative (NEGATIVE); OCCULT BLOOD,URINE Negative (NEGATIVE); PH,URINE 5.5 (5.0-8.0); PROTEIN,URINE Negative (NEGATIVE)
[2021-04-10 12:35] LABS: BACTERIA,URINE Rare /HPF (None Seen); MUCUS,URINE Few LPF (None Seen); RBC,URINE 0-1 /HPF (0-1); SQUAMOUS EPITHELIAL CELL,UR Rare /HPF (0-2)
[2021-04-10] MEDS: CEFTRIAXONE 1G VIAL IV SCH (16:59)
[2021-04-11] VITALS (7 sets, daily range): BP systolic 96–131; BP diastolic 45–74
[2021-04-11 09:41] LABS: HEMATOCRIT 22.2 % (42-54); MEAN CORPUSCULAR HEMOGLOBIN 32.6 pg (27.0-33.0); MEAN CORPUSCULAR HGB CONC 34.7 g/dL (32.0-36.0); MEAN CORPUSCULAR VOLUME 94.1 fL (79-99); RED BLOOD CELL COUNT(AUTO) 2.36 MIL/uL (4.50-6.20); RED CELL DISTRIBUTION WIDTH 21.1 % (11.0-15.5)
[2021-04-11] MEDS: MIDODRINE HCL 5 MG TABLET PO SCH ×3 (10:06→19:41)
[2021-04-11] MEDS: OCTREOTIDE ACETATE 100 MCG/ML AMP SQ SCH ×3 (10:06→19:41)
[2021-04-11] MEDS: PANTOPRAZOLE 40 MG/VIAL IVP SCH ×2 (10:06→19:42)
[2021-04-11] MEDS: LACTULOSE 20 GM/30 ML UDCUP PO SCH ×2 (10:06→19:42)
[2021-04-11 10:11] LABS: ALBUMIN 3.1 g/dL (3.5-5.0); BILIRUBIN,TOTAL 8.6 mg/dL (0.2-1.0); CREATININE 2.8 mg/dL (0.5-1.5); TOTAL PROTEIN, SERUM 4.8 g/dL (6.0-8.3)
[2021-04-11] MEDS: PHYTONADIONE 10 MG/1 ML AMP IM SCH (11:51)
[2021-04-11] MEDS ORDERED: ALBUMIN (HUMAN) 25% 300 ML IV SCH (13:00)
[2021-04-11] MEDS: CEFTRIAXONE 1G VIAL IV SCH (14:59)
[2021-04-12 03:51] VITALS: BP 118/59
[2021-04-12 05:45] LABS: ALBUMIN 3.7 g/dL (3.5-5.0); BILIRUBIN,TOTAL 4.8 mg/dL (0.2-1.0); CREATININE 2.9 mg/dL (0.5-1.5); POTASSIUM 4.8 mmol/L (3.5-5.1); TOTAL PROTEIN, SERUM 5.4 g/dL (6.0-8.3)
[2021-04-12 05:56] LABS: LYMPHOCYTES % (AUTO) 3.1 % (21.0-51.0); MEAN CORPUSCULAR HGB CONC 33.5 g/dL (32.0-36.0); MEAN CORPUSCULAR VOLUME 98.6 fL (79-99); MONOCYTES % (AUTO) 14.5 % (3.0-13.0); NEUTROPHILS % (AUTO) 81.6 % (40.0-77.0); PLATELET COUNT (AUTO) 61 K/uL (130-400); RED BLOOD CELL COUNT(AUTO) 2.12 MIL/uL (4.50-6.20); RED CELL DISTRIBUTION WIDTH 21.2 % (11.0-15.5); WHITE BLOOD COUNT (AUTO) 10.5 K/uL (4.8-10.8)
[2021-04-12 06:01] LABS: HEMATOCRIT 20.9 % (42-54)
[2021-04-12 07:50] VITALS: BP 115/74
[2021-04-12 07:59] VITALS: BP 129/57
[2021-04-12] MEDS: LACTULOSE 20 GM/30 ML UDCUP PO SCH (08:57)
[2021-04-12] MEDS: PANTOPRAZOLE 40 MG/VIAL IVP SCH (08:57)
[2021-04-12] MEDS: MIDODRINE HCL 5 MG TABLET PO SCH (08:57)
[2021-04-12] MEDS: OCTREOTIDE ACETATE 100 MCG/ML AMP SQ SCH (08:58)
[2021-04-12] MEDS ORDERED: FUROSEMIDE 40MG VIAL IV SCH (11:30)
[2021-04-12 11:47] VITALS: BP 125/67
[2021-04-13] MEDS ORDERED: CYCL10 PO (21:02)
[2021-04-13] MEDS ORDERED: GABA300C PO (21:02)
== END 2021-04-12 12:37 | disposition left against medical advice (07) | DRG 280 ==
LOC: EDH 07:54 → EDHIP 07:55 → 3AH 04-10 14:23
PROVIDERS: ADMIT Internal Medicine; ATTEND Internal Medicine
PROC: 30233K1 Transfusion of Nonautologous Frozen Plasma into Peripheral Vein, Percutaneous Approach (ICD-10-PCS; principal; 2021-04-09)
PROC: 0W9G3ZZ Drainage of Peritoneal Cavity, Percutaneous Approach (ICD-10-PCS; 2021-04-09)
PROC: 30233N1 Transfusion of Nonautologous Red Blood Cells into Peripheral Vein, Percutaneous Approach (ICD-10-PCS; 2021-04-10)
DX: K70.31 Alcoholic cirrhosis of liver with ascites (principal); K76.7 Hepatorenal syndrome; K65.2 Spontaneous bacterial peritonitis; D68.4 Acquired coagulation factor deficiency; D69.6 Thrombocytopenia, unspecified; E11.22 Type 2 diabetes mellitus with diabetic chronic kidney disease; N17.9 Acute kidney failure, unspecified; N18.4 Chronic kidney disease, stage 4 (severe); E87.1 Hypo-osmolality and hyponatremia; R18.8 Other ascites; E87.5 Hyperkalemia; E87.70 Fluid overload, unspecified; D53.9 Nutritional anemia, unspecified; F10.10 Alcohol abuse, uncomplicated; J98.11 Atelectasis; Z79.899 Other long term (current) drug therapy; Z87.891 Personal history of nicotine dependence; Z91.19 Patient's noncompliance with other medical treatment and regimen
CPT/HCPCS: 36415; 36600; 49083; 71045; 80053; 81001; 82140; 82247; 82270; 82435; 82533; 82803; 82945; 82947; 83540; 83550; 83605; 83615; 84132; 84145; 84157; 84295; 84484; 85014; 85018; 85025; 85027; 85610; 85730; 86078; 86850; 86900; 86901; 86923; 86927; 87040; 87071; 87205; 89051; 93005; 94640; C1729; C9113; G0378; J0610; J0696; J1200; J1815; J1940; J2354; J2930; J3430; J3490; J7070; P9016; P9017; P9046

== ENCOUNTER 2021-04-13 20:46 | Emergency (ER) | payer MEDICAID ==
[~2021-04-13 20:46] MED LIST changes: -FURO20TA4 PO; -PANT40TA PO; -SPIR25TA6 PO
[2021-04-13 20:53] VITALS: BP 105/62
[2021-04-13] MEDS ORDERED: DIAZEPAM 5 MG TABLET PO ONE (21:00)
[2021-04-13] MEDS ORDERED: KETOROLAC 60 MG VIAL (30MG/ML) IM ONE (21:00)
[2021-04-13] MEDS ORDERED: GABA300C PO (21:02)
[2021-04-13] MEDS ORDERED: CYCL10 PO (21:02)
[2021-04-13] MEDS ORDERED: KETOROLAC 60 MG VIAL (30MG/ML) ONE (21:05)
== END 2021-04-13 23:58 | disposition home or self-care (01) ==
LOC: EDH 20:46
DX: S39.012A Strain of muscle, fascia and tendon of lower back, initial encounter (principal); R18.8 Other ascites; R17 Unspecified jaundice; F17.200 Nicotine dependence, unspecified, uncomplicated; X58.XXXA Exposure to other specified factors, initial encounter; Z79.1 Long term (current) use of non-steroidal anti-inflammatories (NSAID); Z79.899 Other long term (current) drug therapy; Y93.89 Activity, other specified; Y92.89 Other specified places as the place of occurrence of the external cause; Y99.8 Other external cause status
CPT/HCPCS: 96372; 99283; J1885

== ENCOUNTER 2021-04-24 19:09 | Emergency (ER) | payer MEDICAID ==
[~2021-04-24 19:09] MED LIST changes: +CYCL10 PO; +GABA300C PO
== END 2021-04-24 21:13 | disposition left against medical advice (07) ==
LOC: EDH 19:09
DX: Z53.21 Procedure and treatment not carried out due to patient leaving prior to being seen by health care provider (principal)

== ENCOUNTER 2021-04-27 07:59 | Emergency (ER) | payer MEDICAID ==
[~2021-04-27] VITALS: Ht 170.2 cm; Wt 68.0 kg
[2021-04-27 08:08] VITALS: BP 125/75
[2021-04-27 09:04] LABS: BASOPHILS % (AUTO) 0.9 % (0.0-5.0); EOSINOPHILS % (AUTO) 5.3 % (0.0-8.0); HEMATOCRIT 31.2 % (42-54); LYMPHOCYTES % (AUTO) 18.7 % (21.0-51.0); MEAN CORPUSCULAR HEMOGLOBIN 32.5 pg (27.0-33.0); MEAN CORPUSCULAR HGB CONC 32.4 g/dL (32.0-36.0); MEAN CORPUSCULAR VOLUME 100.3 fL (79-99); MONOCYTES % (AUTO) 17.7 % (3.0-13.0); NEUTROPHILS % (AUTO) 55.8 % (40.0-77.0); PLATELET COUNT (AUTO) 69 K/uL (130-400); RED BLOOD CELL COUNT(AUTO) 3.11 MIL/uL (4.50-6.20); RED CELL DISTRIBUTION WIDTH 20.8 % (11.0-15.5); WHITE BLOOD COUNT (AUTO) 6.4 K/uL (4.8-10.8)
[2021-04-27 09:10] VITALS: BP 131/72
[2021-04-27 09:15] LABS: CREATININE 1.6 mg/dL (0.5-1.5); POTASSIUM 5.1 mmol/L (3.5-5.1)
[2021-04-27 09:20] LABS: ALBUMIN 3.4 g/dL (3.5-5.0); BILIRUBIN,TOTAL 7.1 mg/dL (0.2-1.0); TOTAL PROTEIN, SERUM 6.1 g/dL (6.0-8.3)
[2021-04-27 09:23] LABS: INR 1.39 (0.85-1.15); PROTHROMBIN TIME 14.7 SEC (9.6-11.6)
[2021-04-27 09:24] LABS: PARTIAL THROMBOPLASTIN TIME 37.4 SEC (26.3-35.5)
[2021-04-27 09:25] LABS: PLATELET MORPHOLOGY COMMENT DECREASED
[2021-04-27 10:18] VITALS: BP 135/78
[2021-04-27] MEDS ORDERED: ALBUMIN (HUMAN) 25% 200 ML IV ONE (11:27)
[2021-04-27 12:17] VITALS: BP 122/69
[2021-04-27 13:02] VITALS: BP 113/54
== END 2021-04-27 13:07 | disposition home or self-care (01) ==
LOC: EDH 07:59
DX: K70.31 Alcoholic cirrhosis of liver with ascites (principal); E87.1 Hypo-osmolality and hyponatremia; F17.200 Nicotine dependence, unspecified, uncomplicated; Z79.899 Other long term (current) drug therapy
CPT/HCPCS: 36415; 49083; 80053; 83690; 85025; 85610; 85730; 96365; 99285; C1729; P9046